=== PATIENT | female | born 1940 | race Caucasian/White ===

== ENCOUNTER 2017-02-19 08:48 | Outpatient (CLI) | payer MEDICARE, OTHER | END 2017-02-19 08:49 | disposition home or self-care (01) | DX: G62.9 Polyneuropathy, unspecified (principal); R73.01 Impaired fasting glucose; E04.1 Nontoxic single thyroid nodule ==

== ENCOUNTER 2017-02-27 14:55 | Outpatient (CLI) | payer MEDICARE, OTHER | END 2017-02-27 14:56 | disposition home or self-care (01) | DX: R10.9 Unspecified abdominal pain (principal) ==

== ENCOUNTER 2017-02-27 15:20 | Outpatient (CLI) | payer MEDICARE, OTHER ==
[2017-02-27] MEDS ORDERED: IOPAMIDOL-300 100 ML VIAL IVP ONE (17:22)
[2017-02-27] MEDS ORDERED: IOVERSOL-300 50 ML VIAL PO ONE (17:22)
== END 2017-02-27 15:21 | disposition home or self-care (01) ==
DX: R10.9 Unspecified abdominal pain (principal)
CPT/HCPCS: 74177; Q9967

== ENCOUNTER 2017-05-16 01:28 | Outpatient (CLI) | payer MEDICARE, OTHER ==
[2017-05-16 13:51] LABS: BASOPHILS % (AUTO) 0.2 %; EOSINOPHILS # (AUTO) 0.6 10^3/uL (0.0-0.7); EOSINOPHILS % (AUTO) 9.1 %; HCT - HEMATOCRIT 41.5 % (37.0-47.0); HGB - HEMOGLOBIN 13.9 g/dL (12.0-16.0); LYMPHOCYTES # (AUTO) 2.1 10^3/uL (1.5-3.5); LYMPHOCYTES % (AUTO) 29.9 %; MEAN CORPUSCULAR HGB CONC 33.4 g/dL (32.0-36.0); MEAN CORPUSCULAR VOLUME 86.7 fL (81.0-99.0); MEAN PLATELET VOLUME 9.6 fL (7.9-10.8); MONOCYTES # (AUTO) 0.7 10^3/uL (0.0-1.0); MONOCYTES % (AUTO) 10.1 %; NEUTROPHILS # (AUTO) 3.6 10^3/uL (1.5-6.6); NEUTROPHILS % (AUTO) 50.7 %; RED BLOOD COUNT 4.79 10^6/uL (4.20-5.40); RED CELL DISTRIBUTION WIDTH 14.1 % (12.0-15.0)
[2017-05-16 14:25] LABS: ALBUMIN/GLOBULIN RATIO 1.4 (1.0-2.2); BILIRUBIN,TOTAL 1.1 mg/dL (0.2-1.0); BUN - BLOOD UREA NITROGEN 12 mg/dL (6-20); CALCIUM 8.9 mg/dL (8.5-10.3); CARBON DIOXIDE - CO2 25 mmol/L (21-32); CHLORIDE 107 mmol/L (101-111); CHOL/HDL RATIO 3.5 (<4.4); CHOLESTEROL 179 mg/dL; CREATININE 0.6 mg/dL (0.4-1.0); GFR - MDRD 97 (>89); GLUCOSE 102 mg/dL (70-100); HDL CHOLESTEROL 51 mg/dL; LDL/HDL RATIO 1.6 (<4.4); POTASSIUM 3.8 mmol/L (3.5-5.0); SODIUM 140 mmol/L (135-145); TOTAL PROTEIN 6.4 g/dL (6.7-8.2); TRIGLYCERIDES 225 mg/dL; VLDL CHOLESTEROL 45 mg/dL
== END 2017-05-16 01:29 | disposition home or self-care (01) ==
LOC: LAB.WCP 01:28
PROVIDERS: ATTEND Family Medicine
DX: E78.5 Hyperlipidemia, unspecified (principal)
CPT/HCPCS: 36415; 80053; 80061; 84443; 85025

== ENCOUNTER 2017-08-08 09:55 | Outpatient (CLI) | payer MEDICARE, OTHER | END 2017-08-08 09:56 | disposition home or self-care (01) | LOC: LAB.WCP 09:55 | PROVIDERS: ATTEND Family Medicine | DX: N39.0 Urinary tract infection, site not specified (principal) | CPT/HCPCS: 87086 ==

== ENCOUNTER 2017-08-08 13:03 | Outpatient (CLI) | payer MEDICARE, OTHER ==
--- NOTE | 2017-08-12 13:41 | DEXA Report ---
DEXA: 08/08/2017 CLINICAL INDICATION: Postmenopausal. TECHNIQUE: Dual energy x-ray absorptiometry (DXA) was performed on a [employer] system. Regions measured are the AP spine, femoral neck, and, if needed, forearm. COMPARISON: None. In accordance with the International Society for Clinical Densitometry (ISCD) guidelines, data from previous exams may be reanalyzed using current recommendations and techniques. This is done to allow a more accurate basis for comparison with the current study. FINDINGS The data for the lumbar spine is as follows: REGION BMD (g/cm/cm) T-SCORE Z-SCORE L1 1.119 -0.1 1.8 L2 1.086 -0.9 1.0 L3 1.298 0.8 2.7 L4 1.440 2.0 3.9 TOTAL 1.253 0.6 2.5 NOTE: All evaluable vertebrae are used for classification. The data for the hip is as follows: REGION BMD (g/cm/cm) T-SCORE Z-SCORE Neck 0.810 -1.6 0.4 TOTAL 0.792 -1.7 0.2 NOTE: The femoral neck or total proximal femur, whichever is lowest, is used for classification. IMPRESSION: THE WHO CLASSIFICATION BASED ON THE INTERNATIONAL REFERENCE STANDARD IS OSTEOPENIA. THE FRACTURE RISK IS INCREASED. RECOMMENDATION: Patients with diagnosis of osteoporosis or osteopenia should have regular bone mineral density assessment. For those eligible for Medicare, routine testing is allowed once every 2 years. Testing frequency can be increased for patients who have rapidly progressing disease or for those who are receiving medical therapy to restore bone mass. COMMENT: World Health Organization (WHO) definitions for osteoporosis and osteopenia: NORMAL BMD: T-score at -1.0 or higher, fracture risk is low. OSTEOPENIA BMD: T-score between -1.0 and -2.5, fracture risk is increased. OSTEOPOROSIS BMD: T-score at -2.5 or lower, fracture risk high. National Osteoporosis Foundation recommends: 1. Obtain adequate dietary calcium (at least 1200 mg per day) and vitamin D (400 -800 international units per day). 2. Participate, as appropriate, in regular weightbearing and muscle- strengthening exercise. 3. Avoid tobacco use and reduce alcohol and caffeine intake. 4. For more detailed information see the website at www.NOF.org. MTDD
== END 2017-08-08 13:04 | disposition home or self-care (01) ==
LOC: DI 13:03
PROVIDERS: ATTEND Family Medicine
DX: M85.88 Other specified disorders of bone density and structure, other site (principal); N39.0 Urinary tract infection, site not specified
CPT/HCPCS: 77080; 87086

== ENCOUNTER 2017-11-19 12:06 | Outpatient (CLI) | payer MEDICARE, OTHER | END 2017-11-19 12:07 | disposition home or self-care (01) | LOC: DI.N 12:06 | PROVIDERS: ATTEND Family Medicine | DX: Z53.9 Procedure and treatment not carried out, unspecified reason (principal) ==

== ENCOUNTER 2017-11-26 08:00 | Outpatient (CLI) | payer MEDICARE, OTHER | END 2017-11-26 08:01 | disposition home or self-care (01) | LOC: LAB.WCP 08:00 | PROVIDERS: ATTEND Physician Assistant Medical | DX: N64.52 Nipple discharge (principal) | CPT/HCPCS: 87070; 87205 ==

== ENCOUNTER 2017-12-03 14:39 | Outpatient (CLI) | payer MEDICARE, OTHER ==
--- NOTE | 2017-12-03 18:37 | MRI Report ---
EXAM: LEFT SHOULDER MRI WITHOUT CONTRAST EXAM DATE: 12/03/2017 03:30 PM. CLINICAL HISTORY: Shoulder impingement syndrome, left. COMPARISON: None. TECHNIQUE: Multiplanar, multisequence T1-weighted and fluid-sensitive sequences of the shoulder witho ut contrast. Other: None. FINDINGS: Acromioclavicular Region: The acromion is Type II unipartite. AC joint is moderately to severely oste oarthritic and there is a small AC joint effusion. The coracoacromial and coracoclavicular ligaments are intact. Trace amount of bursal fluid is present. Glenohumeral Region: No subluxation. No effusion or loose bodies. The articular cartilage is unremark able. The glenohumeral ligaments and joint capsule are unremarkable. Bone Marrow: Small amount of cystic change seen in the superior anterior aspect of the humeral head, benign. Labrum: The labrum is unremarkable on this nonarthrographic study. Musculature/Rotator Cuff: Supraspinatus portion of the rotator cuff is normal thickness; however, evelyne ws some increased T2 signal. Lesser amounts of similar change seen in the subscapularis. No partial o r full-thickness cuff tears are seen. No proximal muscular edema or fatty atrophy. Biceps Tendon: The long head of the biceps tendon and biceps patric are intact. Other: The subcutaneous tissues are unremarkable. IMPRESSION: 1. Type II unipartite undersurface osseous acromion shape. AC joint is moderate to severely osteoarth ritic and there is a small AC joint effusion. Trace amount of bursal fluid is present, probably from mild bursitis. 2. Tendinopathy in the supraspinatus and subscapularis portions of the rotator cuff. 3. Labrum, capsular structures of long head of the biceps appear unremarkable. [facility] MUSCULOSKELETAL RADIOLOGY SECTION Referring Provider Line: [phone] SITE ID: [id number]
== END 2017-12-03 14:40 | disposition home or self-care (01) ==
LOC: DI 14:39
PROVIDERS: ATTEND Physician Assistant Medical
DX: M19.012 Primary osteoarthritis, left shoulder (principal); M25.412 Effusion, left shoulder; M75.92 Shoulder lesion, unspecified, left shoulder

== ENCOUNTER 2017-12-04 13:02 | Outpatient (CLI) | payer MEDICARE, OTHER ==
--- NOTE | 2017-12-05 09:54 | Mammography Report ---
DATE OF SERVICE: 12/04/2017 DIGITAL DIAGNOSTIC BILATERAL MAMMOGRAM: 12/04/2017 CLINICAL INDICATION: Bilateral nipple discharge. TECHNIQUE: Bilateral CC, MLO, true lateral, spot magnification views. COMPARISON: 10/2016, 10/2015, 09/2014, 09/2013, 07/2012, 07/2011, 06/2010. FINDINGS: The breasts again demonstrate scattered fibroglandular densities bilaterally. Coarse and punctate, typically benign calcifications are present. No suspicious masses, clustered microcalcifications, or regions of architectural distortion are identified. Specifically, no retroareolar lesion is identified on either side. IMPRESSION: BENIGN FINDINGS. RECOMMENDATION: ROUTINE ANNUAL SCREENING UNLESS OTHERWISE CLINICALLY INDICATED. BIRADS CATEGORY 2-BENIGN FINDINGS. STANDARD QUALIFYING STATEMENTS: 1. This examination was reviewed with the aid of Computer-Aided Detection (CAD). 2. A negative or benign imaging report should not delay biopsy if clinically suspicious findings are present. Consider surgical consultation if warranted. More than 5% of cancers are not identified by imaging. 3. Dense breasts may obscure an underlying neoplasm. TD: 12/05/2017 10:52
== END 2017-12-04 13:03 | disposition home or self-care (01) ==
LOC: DI 13:02
PROVIDERS: ATTEND Physician Assistant Medical
DX: N64.52 Nipple discharge (principal)
CPT/HCPCS: 77066

== ENCOUNTER 2018-02-26 08:00 | Outpatient (CLI) | payer MEDICARE, OTHER ==
[2018-02-26 18:54] LABS: BASOPHILS % (AUTO) 0.5 %; EOSINOPHILS # (AUTO) 0.1 10^3/uL (0.0-0.7); EOSINOPHILS % (AUTO) 1.3 %; HGB - HEMOGLOBIN 14.5 g/dL (12.0-16.0); LYMPHOCYTES # (AUTO) 2.1 10^3/uL (1.5-3.5); LYMPHOCYTES % (AUTO) 26.3 %; MEAN CORPUSCULAR HEMOGLOBIN 28.8 pg (27.0-31.0); MEAN CORPUSCULAR HGB CONC 32.9 g/dL (32.0-36.0); MEAN CORPUSCULAR VOLUME 87.6 fL (81.0-99.0); MEAN PLATELET VOLUME 10.1 fL (7.9-10.8); MONOCYTES # (AUTO) 0.8 10^3/uL (0.0-1.0); MONOCYTES % (AUTO) 10.6 %; NEUTROPHILS # (AUTO) 4.8 10^3/uL (1.5-6.6); NEUTROPHILS % (AUTO) 61.3 %; PLT - PLATELET COUNT 248 10^3/uL (130-450); RED BLOOD COUNT 5.03 10^6/uL (4.20-5.40); RED CELL DISTRIBUTION WIDTH 13.7 % (12.0-15.0); WHITE BLOOD COUNT 7.8 x10^3/uL (4.8-10.8)
[2018-02-26 19:14] LABS: ALBUMIN 4.2 g/dL (3.2-5.5); ALBUMIN/GLOBULIN RATIO 1.5 (1.0-2.2); ALKALINE PHOSPHATASE 101 IU/L (42-121); ALT ALANINE AMINOTRANSFERASE 20 IU/L (10-60); AST ASPARTATE AMINOTRANSFERASE 23 IU/L (10-42); BILIRUBIN,TOTAL 1.1 mg/dL (0.2-1.0); BUN - BLOOD UREA NITROGEN 21 mg/dL (6-20); CALCIUM 9.3 mg/dL (8.5-10.3); CARBON DIOXIDE - CO2 27 mmol/L (21-32); CHLORIDE 105 mmol/L (101-111); CHOL/HDL RATIO 3.8 (<4.4); CHOLESTEROL 200 mg/dL; CREATININE 0.7 mg/dL (0.4-1.0); GFR - MDRD 81 (>89); GLUCOSE 96 mg/dL (70-100); HDL CHOLESTEROL 52 mg/dL; LDL CHOLESTEROL,CALCULATED 93 mg/dL; LDL/HDL RATIO 1.8 (<4.4); SODIUM 139 mmol/L (135-145); VLDL CHOLESTEROL 55 mg/dL
== END 2018-02-26 08:01 | disposition home or self-care (01) ==
LOC: LAB.WCP 08:00
PROVIDERS: ATTEND Family Medicine
DX: I20.9 Angina pectoris, unspecified (principal); R07.9 Chest pain, unspecified
CPT/HCPCS: 36415; 80053; 80061; 83721; 84484; 85025; 85379

== ENCOUNTER 2018-03-05 09:41 | Outpatient (CLI) | payer MEDICARE, OTHER ==
[2018-03-05] MEDS ORDERED: REGADENOSON 0.4 MG/5 ML SYRINGE IVP ONE ×2 (10:09→14:17)
--- NOTE | 2018-03-05 14:26 | CARDIAC PROCEDURE NOTE ---
DATE OF SERVICE: 03/05/2018 Physician: SAVANNA Mclain PRIMARY CARE PHYSICIAN: Dr. Cat Haddad. PROCEDURE: Pharmacologic cardiac stress test. PROCEDURES SYMPTOMS: Chest pain with exertion. CARDIAC RISK FACTORS: Include age, hypertension, and hyperlipidemia. She has had no prior cardiac procedures. CLINICAL HISTORY: A 77-year-old female without known coronary artery disease. She has no current symptoms. Her last dose of atenolol was taken last evening. INITIAL RESTING VITAL SIGNS: Blood pressure 162/80, heart rate 86, height 61.5 inches, weight 139 pounds, BMI 25.86. PROCEDURE AND FINDINGS: Patient identity and date verified. Consent signed. Pharmaceutical check. Pharmacologic stress testing was performed with Lexiscan at a dose of 0.4 mg over 10 seconds. The heart rate increased to 112 beats per minute from the infusion. Blood pressure response was normal during the stress procedure. The patient developed infusion-related symptoms, which included shortness of air, chest pain, and headache that resolved spontaneously. The resting ECG demonstrated normal sinus rhythm with right bundle branch block, with no or nonspecific ST or T-wave changes. Maximum ST segment depression with stress was less than 0.5 mm and upsloping. There was rare PVC ectopy. FINAL IMPRESSIONS 1. Good quality test. 2. Negative electrocardiogram for ischemia in the setting of vasodilator stress. 3. Nondiagnostic stress test for angina. 4. Rare PVCs. DISCUSSION AND RECOMMENDATIONS: Await myocardial perfusion report. TD: 03/05/2018 14:24 [email or web address]
--- NOTE | 2018-03-05 14:34 | Nuclear Medicine Report ---
EXAM: SINGLE-ISOTOPE PHARMACOLOGICAL STRESS TEST WITH REGADENOSON. SINGLE-ISOTOPE AND ONE-DAY REST/STRESS M YOCARDIAL PERFUSION SCANS WITH TOMOGRAPHIC IMAGING, QUANTITATIVE ANALYSIS, WALL MOTION ANALYSIS AND C ALCULATION OF EJECTION FRACTION. EXAM DATE: 03/05/2018 02:20 PM. CLINICAL HISTORY: CHEST PAIN, ANGINA. COMPARISON: None available. TECHNIQUE: After the intravenous administration of 9.4 mCi of Tc-99m sestamibi, a rest myocardial perfusion scan was done with tomography. Motion correction was applied when appropriate. After an appropriate delay, pharmacological stress was performed with the infusion of 0.4 mg regadeno son per protocol. According to protocol, 41.8 mCi of Tc-99m sestamibi was injected for stress myocard ial perfusion scan. Motion correction was applied when appropriate. Gated tomographic images were obtained for wall motion analysis and computation of left ventricular e jection fraction. FINDINGS: Images show a small, moderate severity predominantly reversible defect involving the anteri or apex and distal anterolateral wall. No other convincing fixed or reversible perfusion defects. Wall motion analysis demonstrates no focal wall motion abnormality. The left ventricular end-diastolic volume is 67 cc. The left ventricular end-systolic volume is 15 cc . The left ventricular ejection fraction is calculated to be 77%. IMPRESSION: 1. Small, moderate severity predominantly reversible perfusion defect involving the anterior apex and distal anterolateral wall. No other convincing fixed or reversible perfusion defects. 2. Left ventricular ejection fraction of 77%. 3. Normal segmental and global wall motion. 4. Normal left ventricular cavity size, no change with stress. [facility] Referring Provider Line: [phone] SITE ID: [id number]
[2018-03-05 15:31] VITALS: BP 164/84
== END 2018-03-05 09:42 | disposition home or self-care (01) ==
LOC: DI 09:41
PROVIDERS: ATTEND Family Medicine
DX: R07.9 Chest pain, unspecified (principal); I20.9 Angina pectoris, unspecified; I10 Essential (primary) hypertension; E78.5 Hyperlipidemia, unspecified
CPT/HCPCS: 78452; 93017; A9500; J2785; 93016; 93018

== ENCOUNTER 2018-04-02 06:50 | Outpatient (CLI) | payer MEDICARE, OTHER | END 2018-04-02 06:51 | disposition critical access hospital (66) | LOC: EMS 06:50 | PROVIDERS: ATTEND Surgery | DX: R51 Headache (principal); R03.0 Elevated blood-pressure reading, without diagnosis of hypertension; R29.91 Unspecified symptoms and signs involving the musculoskeletal system | CPT/HCPCS: A0425; A0429 ==

== ENCOUNTER 2018-04-02 07:16 | Emergency (ER) | payer MEDICARE, OTHER ==
[2018-04-02] MEDS ORDERED: DEXAMETHASONE 10 MG/ML VIAL IVP STA (07:19)
[2018-04-02] MEDS ORDERED: LABETALOL 20 MG/4 ML SYRINGE IVP ONE (07:24)
--- NOTE | 2018-04-02 07:31 | ED Physician Documentation ---
History of Present Illness - Stated complaint Stated Complaint: R FACIAL WEAKNESS - Chief complaint Chief Complaint: Heent - History obtained from History obtained from: Patient, Family - History of Present Illness Timing: Today - Additonal information Additional information: 77-year-old female with a history of coronary artery disease and hypertension has developed a right facial droop today. She had this is accompanied by some pain behind her right ear and into her right neck and into the right occiput. She is found to be extremely hypertensive as well. She has had a recent nuclear medicine stress test and is expecting to get a stent placed soon. Review of Systems Constitutional: denies: Fever Eyes: denies: Decreased vision Ears: denies: Ear pain Nose: denies: Rhinorrhea / runny nose, Congestion Throat: denies: Sore throat Cardiac: denies: Chest pain / pressure Respiratory: denies: Dyspnea, Cough GI: reports: Diarrhea. denies: Abdominal Pain, Nausea, Vomiting : denies: Dysuria, Frequency Skin: denies: Rash Musculoskeletal: reports: Neck pain. denies: Back pain, Extremity pain Neurologic: reports: Focal weakness, Numbness, Headache. 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 HEENT: Tonsil/Adenoidectomy - Present Medications Home Medications: Ambulatory Orders Medication Instructions Recorded Confirmed Atorvastatin Calcium [Lipitor] 10 mg PO HS 07/29/13 06/20/15 Clobetasol Propionate/Emoll 1 applic TOP DAILY PRN 07/29/13 06/20/15 [Clobetasol Emollient 0.05% Crm] Levothyroxine [Synthroid] 50 mcg PO QDAC 07/29/13 06/20/15 Multivitamin [Multivitamins] 1 each PO DAILY 07/29/13 06/20/15 Metoprolol Succinate 100 DAILY 04/02/18 predniSONE [Deltasone] 10 mg PO DAILY #26 tablet 04/02/18 - Allergies Allergies/Adverse Reactions: Allergies Allergy/AdvReac Type Severity Reaction Status Date / Time metoclopramide HCl * Allergy VIOLENTLY Verified 09/22/13 08:22 [From Reglan] ILL acetaminophen [From Vicodin] AdvReac Nausea Verified 06/20/15 09:23 hydrocodone bitartrate * AdvReac Nausea Verified 06/20/15 09:23 [From Vicodin] morphine AdvReac NAUSEA/EMES Verified 09/22/13 08:22 IS - Social History Does the pt smoke?: No Smoking Status: Never smoker Does the pt have substance abuse?: No - Immunizations Immunizations are current?: Yes PD ED PE NORMAL - Vitals Vital signs reviewed: Yes (marked hypertension ) - General General: Alert and oriented X 3, No acute distress, Well developed/nourished, Other (obvious right facial droop) - HEENT HEENT: Atraumatic, PERRL, EOMI, Ears normal, Moist mucous membranes, Pharynx benign, Dentition benign - Neck Neck: Supple, no meningeal sign, No bony TTP - Cardiac Cardiac: RRR, No murmur - Respiratory Respiratory: No respiratory distress, Clear bilaterally - Abdomen Abdomen: Soft, Non tender - Back Back: No CVA TTP, No spinal TTP - Derm Derm: Normal color, Warm and dry, No rash - Extremities Extremities: No deformity, No edema - Neuro Neuro: Alert and oriented X 3, Normal speech, Other (There is a right facial droop most prominent at the mouth and less over the eye and forehead but present in both) Eye Opening: Spontaneous Motor: Obeys Commands Verbal: Oriented GCS Score: 15 - Psych Psych: Normal mood, Normal affect Results - Vitals Vitals: Vital Signs - 24 hr 04/02/18 04/02/18 04/02/18 07:16 08:09 09:46 Temperature 36.8 C 36.3 C L Heart Rate 92 79 90 Respiratory 16 17 16 Rate Blood Pressure 231/119 H 189/94 H 199/95 H O2 Saturation 97 95 96 04/02/18 04/02/18 04/02/18 11:06 13:14 14:53 Temperature 36.5 C 36.9 C Heart Rate 90 97 98 Respiratory 18 15 18 Rate Blood Pressure 138/78 H 162/86 H 157/90 H O2 Saturation 95 96 95 Oxygen O2 Source Room air - EKG (time done) 0741 Rate: Rate (enter#) (74) Rhythm: NSR Intervals: RBBB Compare to prior EKG: Old EKG unavailable Computer interpretation: Agree with computer - Labs Labs: Laboratory Tests 04/02/18 04/02/18 04/02/18 07:32 07:32 07:32 WBC 6.9 RBC 5.13 Hgb 15.2 Hct 44.4 MCV 86.6 MCH 29.7 MCHC 34.3 RDW 13.6 Plt Count 227 MPV 9.2 Neut # 4.3 Lymph # 1.7 Mcduffie # 0.6 Eos # 0.2 Baso # 0.1 Absolute Nucleated RBC 0.01 Nucleated RBC % 0.1 Sodium 137 Potassium 3.8 Chloride 104 Carbon Dioxide 24 Anion Gap 9.0 BUN 20 Creatinine 0.5 Estimated GFR (MDRD) 120 Glucose 113 H Calcium 9.0 Total Bilirubin 1.9 H AST 29 ALT 23 Alkaline Phosphatase 94 Troponin I < 0.04 Total Protein 7.0 Albumin 4.1 Globulin 2.9 Albumin/Globulin Ratio 1.4 Lipase 39 - Rads (name of study) CTA head and neck Radiology: Prelim report reviewed (Impression: CT head 1. No convincing evidence of acute infarct. If there is clinical concern for acute stroke her symptoms persist an MR of the brain should be considered to evaluate for small or subtle pathology. No acute intracranial hemorrhage, mass, hydrocephalus, midline shift, or abnormal postcontrast enhancement. Mild to moderate white matter changes progress from 07/16/2007 appear chronic suggest potential sequelae of chronic small vessel ischemic disease. CTA neck normal CTA of the neck: No dissection, pseudoaneurysm, high-grade stenosis. CTA head: no large vessel occlusion. No intracranial aneurysm, stenosis, or vascular malformation.), EMP read indepedently, See rad report Procedures - IVC sono (time) 1030 Bedside IVC sono: IVC measures (cm) (0.73), IVC collapsed c insp (cm) (complete) , Significant dehydration (est 2-3 liter deficit) 1205 Bedside IVC sono: IVC measures (cm) (1.14), IVC collapsed c insp (cm) (complete) , Dehydration (est 1 liter deficit) 1500 Bedside IVC sono: IVC measures (cm) (1.24), Dehydration PD MEDICAL DECISION MAKING - ED course Complexity details: considered differential, d/w patient, d/w family ED course: 77-year-old female with an acute right facial droop and marked hypertension presents to the emergency department this morning and my initial impression is to control her blood pressure. She is administered labetalol 10 mg intravenously she is also given dexamethasone 10 mg intravenously. She requires a second dose of labetalol and she is found to be significantly dehydrated and IV saline is begun as well. She is administered 2 liters total and her blood pressure stabilizes. She complains of pain in the right occiput and behind the right ear and in the right neck and I was concerned with the dramatic presentation about a possible dissection and CT angio of the neck and head were performed and were negative studies. Departure - Departure Disposition: 01 Home, Self Care Clinical Impression: Reyes's palsy, Dehydration Condition: Stable Instructions: ED [place] Palsy, ED Dehydration Follow-Up: Cat Haddad DO [Primary Care Provider] - Prescriptions: predniSONE [Deltasone] 10 mg PO DAILY #26 tablet Discharge Date/Time: 04/02/18 14:53
[2018-04-02] MEDS ORDERED: LABETALOL 5 MG/1 ML 20 ML MDV IVP STA ×2 (07:37→08:31)
[2018-04-02 07:54] LABS: ALBUMIN 4.1 g/dL (3.2-5.5); ALBUMIN/GLOBULIN RATIO 1.4 (1.0-2.2); BILIRUBIN,TOTAL 1.9 mg/dL (0.2-1.0); CREATININE 0.5 mg/dL (0.4-1.0)
[2018-04-02 07:56] LABS: BASOPHILS # (AUTO) 0.1 10^3/uL (0.0-0.1); BASOPHILS % (AUTO) 0.7 %; EOSINOPHILS # (AUTO) 0.2 10^3/uL (0.0-0.7); EOSINOPHILS % (AUTO) 2.6 %; HGB - HEMOGLOBIN 15.2 g/dL (12.0-16.0); LYMPHOCYTES # (AUTO) 1.7 10^3/uL (1.5-3.5); LYMPHOCYTES % (AUTO) 24.4 %; MEAN CORPUSCULAR HEMOGLOBIN 29.7 pg (27.0-31.0); MEAN CORPUSCULAR HGB CONC 34.3 g/dL (32.0-36.0); MEAN CORPUSCULAR VOLUME 86.6 fL (81.0-99.0); MEAN PLATELET VOLUME 9.2 fL (7.9-10.8); MONOCYTES # (AUTO) 0.6 10^3/uL (0.0-1.0); MONOCYTES % (AUTO) 9.2 %; NEUTROPHILS # (AUTO) 4.3 10^3/uL (1.5-6.6); NEUTROPHILS % (AUTO) 63.1 %; PLT - PLATELET COUNT 227 10^3/uL (130-450); RED BLOOD COUNT 5.13 10^6/uL (4.20-5.40); RED CELL DISTRIBUTION WIDTH 13.6 % (12.0-15.0); WHITE BLOOD COUNT 6.9 x10^3/uL (4.8-10.8)
[2018-04-02] MEDS ORDERED: IOPAMIDOL-300 100 ML VIAL ONE (08:51)
[2018-04-02] MEDS ORDERED: IOPAMIDOL-300 100 ML VIAL IVP ONE (09:26)
--- NOTE | 2018-04-02 10:01 | CT Report ---
EXAM: CT ANGIOGRAM HEAD AND NECK. CT SCAN HEAD WITHOUT AND WITH CONTRAST. EXAM DATE:04/02/2018 09:25 AM. CLINICAL HISTORY:Right sided headache neck pain and facial droop. COMPARISON:CT head 07/16/2007. TECHNIQUE: Routine axial helical CTA imaging was performed from the aortic arch through the [place]. Routine axial CT imaging of the head was performed prior to and following contrast administr ation. Reconstructions: Routine multiplanar 3D MIP reconstructions. IV contrast: 80ML ISOVUE 300. NASCET Criteria are used for stenosis measurements. In accordance with CT protocol optimization, one or more of the following dose reduction techniques w ere utilized for this exam: automated exposure control, adjustment of mA and/or KV based on patient s ize, or use of iterative reconstructive technique. FINDINGS: NON-CONTRAST HEAD: Parenchyma: No acute parenchymal hemorrhage, mass, or midline shift. There is [id number] bilate ral areas of white matter hyperattenuation seen that while progressed from 07/16/2007 appear chronic. T here is no convincing CT evidence of moderate to large acute infarct. Cortical volume appears age-appropriate.. Extra-axial Spaces: Normal. No extra-axial fluid collections or hemorrhage. Ventricles: The ventricles appear age appropriate. No evidence of intraventricular hemorrhage. Orbits and Sinuses: Changes of bilateral lens replacement. Paranasal sinuses and mastoid air cells ar e clear. Extracranial Soft Tissues and Bones: Extracranial soft tissues are unremarkable. No fractures. Other: Vascular calcifications of the cavernous ICA segments. CT ANGIOGRAM HEAD AND NECK: Atherosclerotic calcification of the aortic arch with no significant stenosis seen. Normal three-vess el takeoff. RIGHT: Common Carotid Artery: There is a retrotracheal course of the right common carotid artery. No dissect ion or stenosis seen. Carotid Bulb: There is no significant atherosclerotic plaque at the bifurcation and siphon. Stenosis at the bifurcation by NASCET criteria: No central stenosis. Internal Carotid Artery: No evidence of dissection. Vascular calcification of the cavernous ICA segme nt with high-grade stenosis seen. There is an inferomedially projecting outpouching arising from the supraclinoid right ICA measuring up to 1 mm (series 6, image 98) with posterior communicating artery arising from the tip. Finding may represent an infundibulum. No evidence of aneurysm along the intrac ranial ICA. External Carotid Artery: Unremarkable. Vertebral Artery: Patent without significant stenosis. No evidence of dissection. Anterior Cerebral Artery: Patent without significant stenosis, aneurysm, or vascular malformation. Middle Cerebral Artery: Patent without significant stenosis, aneurysm, or vascular malformation. Posterior Cerebral Artery: Patent without significant stenosis, aneurysm, or vascular malformation. Posterior Communicating Artery: Patent. No aneurysm. LEFT: Common Carotid Artery: Patent without significant stenosis. Carotid Bulb: There is minimal atherosclerotic plaque at the bifurcation and siphon. Stenosis at the bifurcation by NASCET criteria: No significant stenosis. Internal Carotid Artery: No evidence of dissection. Vascular calcification of the cavernous ICA segme nts with no high-grade stenosis seen. No evidence of aneurysm along the intracranial ICA. External Carotid Artery: Unremarkable. Vertebral Artery: Patent without significant stenosis. No evidence of dissection. Anterior Cerebral Artery: Patent without significant stenosis, aneurysm, or vascular malformation. Middle Cerebral Artery: Patent without significant stenosis, aneurysm, or vascular malformation. Posterior Cerebral Artery: Patent without significant stenosis, aneurysm, or vascular malformation. Posterior Communicating Artery: Patent. No aneurysm. CENTRAL: Anterior Communicating Artery: Patent. No aneurysm. Basilar Artery: Patent without significant stenosis. No aneurysm. DURAL VENOUS SINUSES AND MAJOR CENTRAL VEINS: Patent. OTHER: The visualized pharynx and larynx appear normal. Major salivary glands appear normal. Heterogenous attenuation of the thyroid lobe which may represent thyroid goiter. No cervical lymphadenopathy or necrotic lymph nodes seen. Soft tissues of the neck appear normal. Visualized lung apices are clear. No acute fracture or traumatic subluxation of the cervical spine. Multilevel degenerative changes. No suspicious osseous lesion. POST-CONTRAST HEAD: No abnormal enhancement. IMPRESSION: CT HEAD 1. No convincing evidence of acute infarct. If there is clinical concern for acute stroke or symptoms persist an MR of the brain should be considered to evaluate for small or subtle pathology. ASPECTS 10R/10L 2. No acute intracranial hemorrhage, mass, hydrocephalus, midline shift, or abnormal postcontrast enh ancement. 3. [id number] white matter changes that while progressed from 07/16/2007 appear chronic suggest p otential sequela of chronic small vessel ischemic disease. CTA NECK 1. Normal CTA of the neck. No dissection, pseudoaneurysm, high-grade stenosis. CTA HEAD 1. No large vessel occlusion. 2. No intracranial aneurysm, stenosis, or vascular malformation. [facility] Referring Provider Line: [phone] SITE ID: [id number]
[2018-04-02] MEDS ORDERED: SODIUM CHLORIDE 0.9% 1,000 ML IV ONE ×2 (10:34→12:36)
[2018-04-02 14:56] VITALS: BP 157/90
== END 2018-04-02 14:53 | disposition home or self-care (01) ==
LOC: EDUNIT# → ED 07:16
DX: E86.0 Dehydration (principal); G51.0 Bell's palsy; I10 Essential (primary) hypertension; E78.00 Pure hypercholesterolemia, unspecified; E03.9 Hypothyroidism, unspecified; K21.9 Gastro-esophageal reflux disease without esophagitis; M19.90 Unspecified osteoarthritis, unspecified site
CPT/HCPCS: 36415; 70496; 70498; 80053; 83690; 84484; 85025; 93005; 96361; 96374; 96375; 96376; 99284; Q9967

== ENCOUNTER 2018-05-05 11:50 | Outpatient (CLI) | payer MEDICARE, OTHER ==
--- NOTE | 2018-05-05 23:38 | Ultrasound Report ---
Procedure Date: 05/05/2018 Accession Number: [id number] / [id number] Procedure: US - Duplex Ext Veins Left CPT Code: FULL RESULT: EXAM: LEFT LOWER EXTREMITY VENOUS ULTRASOUND EXAM DATE: 05/05/2018 10:50 PM. CLINICAL HISTORY: LEG EDEMA,LEFT,HX OF DVT. COMPARISON: [facility] 04/15/2014. TECHNIQUE: Real-time sonographic vascular imaging was performed by the c 40a crew chief through the lower extremity utilizing both color-flow and Doppler spectral analysis. Multiple resources representative static images were saved for review. FINDINGS: Common Femoral Vein (CFV): Normal. CFV-GSV Junction: Normal. Profunda Femoral Vein (PFV): Normal. Femoral Vein (FV) Prox: Normal. Femoral Vein (FV) Mid: Normal. Femoral Vein (FV) Dist: Normal. Popliteal Vein: Normal. Posterior Tibial Veins: Normal. Peroneal Veins: Normal. Other: Fluid collection lateral to the knee measuring 3.4 x 0.8 x 3.7 cm. IMPRESSION: 1. No evidence for deep venous thrombosis. 2. Fluid lateral to the knee measuring 3.4 x 0.8 x 3.7 cm, possibly knee joint effusion. [facility]
== END 2018-05-05 11:51 | disposition home or self-care (01) ==
LOC: DI 11:50
PROVIDERS: ATTEND Family Medicine
DX: R60.0 Localized edema (principal); Z86.718 Personal history of other venous thrombosis and embolism

== ENCOUNTER 2018-05-08 07:24 | Outpatient (CLI) | payer MEDICARE, OTHER ==
[2018-05-08 12:36] LABS: BASOPHILS # (AUTO) 0.1 10^3/uL (0.0-0.1); BASOPHILS % (AUTO) 0.8 %; EOSINOPHILS # (AUTO) 0.2 10^3/uL (0.0-0.7); EOSINOPHILS % (AUTO) 3.4 %; HGB - HEMOGLOBIN 13.2 g/dL (12.0-16.0); LYMPHOCYTES # (AUTO) 1.4 10^3/uL (1.5-3.5); LYMPHOCYTES % (AUTO) 20.2 %; MEAN CORPUSCULAR HEMOGLOBIN 29.7 pg (27.0-31.0); MEAN CORPUSCULAR HGB CONC 32.8 g/dL (32.0-36.0); MEAN CORPUSCULAR VOLUME 90.6 fL (81.0-99.0); MEAN PLATELET VOLUME 9.5 fL (7.9-10.8); MONOCYTES # (AUTO) 0.7 10^3/uL (0.0-1.0); NEUTROPHILS # (AUTO) 4.6 10^3/uL (1.5-6.6); NEUTROPHILS % (AUTO) 65.6 %; PLT - PLATELET COUNT 273 10^3/uL (130-450); RED BLOOD COUNT 4.42 10^6/uL (4.20-5.40); RED CELL DISTRIBUTION WIDTH 14.4 % (12.0-15.0)
[2018-05-08 12:47] LABS: CHOL/HDL RATIO 2.7 (<4.4); CHOLESTEROL 161 mg/dL; HDL CHOLESTEROL 59 mg/dL; LDL CHOLESTEROL,CALCULATED 58 mg/dL; VLDL CHOLESTEROL 44 mg/dL
[2018-05-08 12:57] LABS: THYROID STIMULATING HORMONE 6.24 uIU/mL (0.34-5.60)
[2018-05-08 12:59] LABS: FREE T4 (FREE THYROXINE) 1.11 ng/dL (0.58-1.64)
[2018-05-08 13:01] LABS: TOTAL T3 1.06 ng/mL (0.87-1.78)
== END 2018-05-08 07:25 | disposition home or self-care (01) ==
LOC: LAB.WCP 07:24
PROVIDERS: ATTEND Internal Medicine Cardiovascular Disease
DX: I25.2 Old myocardial infarction (principal); D50.0 Iron deficiency anemia secondary to blood loss (chronic); E03.9 Hypothyroidism, unspecified; E78.5 Hyperlipidemia, unspecified; I10 Essential (primary) hypertension; I25.10 Atherosclerotic heart disease of native coronary artery without angina pectoris
CPT/HCPCS: 36415; 80061; 83721; 84439; 84443; 84480; 85025

== ENCOUNTER 2018-07-16 07:20 | Outpatient (CLI) | payer MEDICARE, OTHER ==
[2018-07-16 12:34] LABS: BASOPHILS # (AUTO) 0.1 10^3/uL (0.0-0.1); EOSINOPHILS # (AUTO) 0.3 10^3/uL (0.0-0.7); EOSINOPHILS % (AUTO) 5.3 %; HGB - HEMOGLOBIN 14.7 g/dL (12.0-16.0); LYMPHOCYTES # (AUTO) 1.9 10^3/uL (1.5-3.5); MEAN CORPUSCULAR HEMOGLOBIN 29.2 pg (27.0-31.0); MEAN CORPUSCULAR HGB CONC 33.2 g/dL (32.0-36.0); MEAN PLATELET VOLUME 9.9 fL (7.9-10.8); MONOCYTES # (AUTO) 0.7 10^3/uL (0.0-1.0); MONOCYTES % (AUTO) 10.3 %; NEUTROPHILS # (AUTO) 3.7 10^3/uL (1.5-6.6); NEUTROPHILS % (AUTO) 55.4 %; PLT - PLATELET COUNT 254 10^3/uL (130-450); RED BLOOD COUNT 5.05 10^6/uL (4.20-5.40); RED CELL DISTRIBUTION WIDTH 13.9 % (12.0-15.0); WHITE BLOOD COUNT 6.6 x10^3/uL (4.8-10.8)
[2018-07-16 12:39] LABS: ALBUMIN 3.9 g/dL (3.2-5.5); ALBUMIN/GLOBULIN RATIO 1.4 (1.0-2.2); ALKALINE PHOSPHATASE 95 IU/L (42-121); ALT ALANINE AMINOTRANSFERASE 21 IU/L (10-60); AST ASPARTATE AMINOTRANSFERASE 24 IU/L (10-42); BILIRUBIN,TOTAL 1.3 mg/dL (0.2-1.0); BUN - BLOOD UREA NITROGEN 17 mg/dL (6-20); CALCIUM 9.1 mg/dL (8.5-10.3); CARBON DIOXIDE - CO2 24 mmol/L (21-32); CHLORIDE 106 mmol/L (101-111); CHOL/HDL RATIO 3.2 (<4.4); CHOLESTEROL 186 mg/dL; CREATININE 0.7 mg/dL (0.4-1.0); GFR - MDRD 81 (>89); GLUCOSE 104 mg/dL (70-100); HDL CHOLESTEROL 58 mg/dL; LDL CHOLESTEROL,CALCULATED 86 mg/dL; LDL/HDL RATIO 1.5 (<4.4); SODIUM 140 mmol/L (135-145); TOTAL PROTEIN 6.6 g/dL (6.7-8.2); VLDL CHOLESTEROL 42 mg/dL
[2018-07-16 12:45] LABS: HB2 TOTAL 15.6 g/dL; HEMOGLOBIN A1C 0.6 g/dL; HEMOGLOBIN A1C % 5.7 % (4.6-6.2)
== END 2018-07-16 07:21 | disposition home or self-care (01) ==
LOC: LAB.WCP 07:20
PROVIDERS: ATTEND Family Medicine
DX: I10 Essential (primary) hypertension (principal); R73.01 Impaired fasting glucose; I25.10 Atherosclerotic heart disease of native coronary artery without angina pectoris
CPT/HCPCS: 36415; 80053; 80061; 83036; 83721; 84443; 85025

== ENCOUNTER 2018-08-04 18:09 | Outpatient (CLI) | payer MEDICARE, OTHER ==
--- NOTE | 2018-08-05 14:04 | Ultrasound Report ---
Reason: CAROTID ARTERIAL DISEASE, NECK MASS Procedure Date: 08/04/2018 Accession Number: [id number] / [id number] Procedure: US - Carotid Doppler Complete CPT Code: FULL RESULT: EXAM: BILATERAL CAROTID AND VERTEBRAL ARTERY DUPLEX DOPPLER ULTRASOUND: EXAM DATE: 08/04/2018 07:01 PM CLINICAL HISTORY: Carotid arterial disease, neck mass. COMPARISON: HEAD ANGIO 04/02/2018 9:10 AM. TECHNIQUE: Grayscale imaging, color Doppler, and duplex spectral Doppler were used to evaluate the carotid and vertebral arteries bilaterally. Static images were obtained. FINDINGS: Mild atheromatous plaques are present in the right carotid bulb extending into the internal carotid artery. However, no hemodynamically significant stenoses are noted. Mild atheromatous plaques are present in the left carotid bulb extending into the internal carotid artery. However, no hemodynamically significant stenoses are noted. Visualized portions of the neck soft tissues are grossly unremarkable. Both vertebral arteries are antegrade in flow. VELOCITIES (cm/sec): Right: RCCA Mid: PSV 91.3 cm/sec. RCCA Dist: PSV 76.18 cm/sec. PARRISH Prox: PSV 67.5 cm/sec, EDV 15.8 cm/sec. PARRISH Mid: PSV 61.0 cm/sec, EDV 14.5 cm/sec. PARRISH Dist: PSV 55.1 cm/sec, EDV 13.7 cm/sec. RECA: PSV 86.8 cm/sec. RVA: PSV 26.3 cm/sec. RVA flow direction: Antegrade. ICA/CCA: 0.74. Left: LCCA Mid: PSV 68.8 cm/sec. LCCA Dist: PSV 68.9 cm/sec. LICA Prox: PSV 62.9 cm/sec, EDV 15.3 cm/sec. LICA Mid: PSV 76.11 cm/sec, EDV 15.3 cm/sec. LICA Dist: PSV 75.1 cm/sec, EDV 22.7 cm/sec LECA: PSV 69.1 cm/sec. LVA: PSV 22.7 cm/sec. RVA flow direction: Antegrade. ICA/CCA: 1.10 ICA diameter stenosis: Right: <50% by velocity and <70% by NASCET criteria. Left: <50% by velocity and <70% by NASCET criteria. IMPRESSION: 1. Mild bilateral carotid artery plaquing. 2. In the right carotid artery there are no elevated carotid artery velocities to suggest hemodynamically significant stenosis. 3. In the left carotid artery there are no elevated carotid artery velocities to suggest hemodynamically significant stenosis. 4. Normal antegrade flow is present in bilateral vertebral arteries. General Recommendations: Stenosis =50% ICA - Follow-up ultrasound 6-12 months Stenosis <50% ICA - High Risk Patient with plaque - Follow-up ultrasound 1-2 years Normal Study but High Risk Patient - Follow-up ultrasound 3-5 years Management recommendations and diagnostic criteria are based on current IAC endorsed standards in Carotid Artery Stenosis: Grayscale and Doppler Ultrasound Diagnosis. Validated velocity measurements with angiographic measurements and velocity criteria are extrapolated from diameter data as defined by the Society of Radiologists in Ultrasound Consensus Conference Radiology 2003; 229;340-346. RADIA
--- NOTE | 2018-08-05 14:04 | Ultrasound Report ---
Reason: CAROTID ARTERIAL DISEASE, NECK MASS Procedure Date: 08/04/2018 Accession Number: [id number] / [id number] Procedure: US - Head or Neck Soft Tissue CPT Code: FULL RESULT: EXAM: THYROID ULTRASOUND EXAM DATE: 08/04/2018 06:56 PM. CLINICAL HISTORY: Carotid arterial disease, neck mass. COMPARISON: None. TECHNIQUE: Real time sonographic imaging of the thyroid was performed by the window systems administrator. Multiple medical office representative static images were saved for review. FINDINGS: THYROID GLAND: Right Lobe: 4.4 x 1.8 x 2 cm, volume 8.1 cc. Heterogeneous. No nodule. Right Lobe Nodules: None. Left Lobe: 3.3 x 1.3 x 1.6 cm, volume 3.6 cc. Heterogeneous. No nodule. Left Lobe Nodules: None. Isthmus: 0.3 cm AP. Isthmic Nodules: None. LYMPH NODES: No adenopathy demonstrated in the central or lateral compartment. OTHER: None. IMPRESSION: 1. Heterogeneous thyroid gland. No nodule. 2. No adenopathy. Management recommendations are based on 2015 [place] [employer] Management Guidelines for Adult Patients with Thyroid Nodules and Differentiated Thyroid Cancer. RADIA
== END 2018-08-04 18:10 | disposition home or self-care (01) ==
LOC: DI 18:09
PROVIDERS: ATTEND Family Medicine
DX: I77.9 Disorder of arteries and arterioles, unspecified (principal); R22.1 Localized swelling, mass and lump, neck
CPT/HCPCS: 76536; 93880

== ENCOUNTER 2018-09-12 09:35 | Outpatient (CLI) | payer MEDICARE, OTHER ==
[2018-09-12] MEDS ORDERED: IOPAMIDOL-300 100 ML VIAL ONE (09:39)
[2018-09-12 09:55] LABS: CREATININE 0.7 mg/dL (0.4-1.0)
[2018-09-12] MEDS ORDERED: IOPAMIDOL-300 100 ML VIAL IVP ONE (10:13)
--- NOTE | 2018-09-12 21:19 | CT Report ---
Reason: SUBMADIBULAR MASS, LEFT Procedure Date: 09/12/2018 Accession Number: [id number] / [id number] Procedure: CT - Facial Bones W/ CPT Code: FULL RESULT: EXAM: CT MAXILLOFACIAL WITH CONTRAST EXAM DATE: 09/12/2018 10:11 AM. CLINICAL HISTORY: 77-year-old female with left submandibular mass COMPARISONS: Ultrasound head or neck soft tissue 08/04/2018, CTA neck 04/02/2018 TECHNIQUE: Thin-section axial images were acquired of the face after administration of intravenous contrast. Post-processing: Coronal and sagittal reformats. Other: None. IV contrast: 80 cc Isovue-[address] protocol optimization, one or more of the following dose reduction techniques were utilized for this exam: automated exposure control, adjustment of mA and/or KV based on patient size, or use of iterative reconstructive technique. FINDINGS: Soft Tissue: No abnormal inflammation or fluid collection. No soft tissue mass. The infratemporal fossa and parapharyngeal spaces are unremarkable. Orbits: Status post bilateral lens replacement surgery. The visualized orbits are otherwise unremarkable. Bones: No fracture or bone lesion. Temporomandibular Joints: The temporomandibular joints are symmetric and normally located. Sinuses: Normal. No mucosal thickening or fluid levels. Glands: The parotid and submandibular glands are unremarkable. Other: Moderate multilevel degenerative spondylosis of the visualized cervical spine. IMPRESSION: No CT evidence of submandibular mass or mass anywhere else within the visualized structures. RADIA
== END 2018-09-12 09:36 | disposition home or self-care (01) ==
LOC: DI 09:35
PROVIDERS: ATTEND Family Medicine
DX: R22.1 Localized swelling, mass and lump, neck (principal); M47.812 Spondylosis without myelopathy or radiculopathy, cervical region
CPT/HCPCS: 36415; 70487; 82565; Q9967

== ENCOUNTER 2019-02-26 08:00 | Outpatient (CLI) | payer MEDICARE, OTHER ==
[2019-02-26 13:40] LABS: BASOPHILS # (AUTO) 0.1 10^3/uL (0.0-0.1); BASOPHILS % (AUTO) 1.2 %; EOSINOPHILS # (AUTO) 0.2 10^3/uL (0.0-0.7); EOSINOPHILS % (AUTO) 2.3 %; LYMPHOCYTES # (AUTO) 2.3 10^3/uL (1.5-3.5); MEAN CORPUSCULAR HGB CONC 32.6 g/dL (32.0-36.0); MEAN CORPUSCULAR VOLUME 89.1 fL (81.0-99.0); MONOCYTES # (AUTO) 0.7 10^3/uL (0.0-1.0); NEUTROPHILS % (AUTO) 54.5 %; PLT - PLATELET COUNT 269 10^3/uL (130-450); RED BLOOD COUNT 4.83 10^6/uL (4.20-5.40); RED CELL DISTRIBUTION WIDTH 13.5 % (12.0-15.0); WHITE BLOOD COUNT 7.3 x10^3/uL (4.8-10.8)
[2019-02-26 14:10] LABS: ALBUMIN 3.9 g/dL (3.2-5.5); ALBUMIN/GLOBULIN RATIO 1.4 (1.0-2.2); ALKALINE PHOSPHATASE 100 IU/L (42-121); ALT ALANINE AMINOTRANSFERASE 28 IU/L (10-60); AST ASPARTATE AMINOTRANSFERASE 32 IU/L (10-42); BILIRUBIN,TOTAL 1.4 mg/dL (0.2-1.0); BUN - BLOOD UREA NITROGEN 18 mg/dL (6-20); CALCIUM 9.1 mg/dL (8.5-10.3); CARBON DIOXIDE - CO2 25 mmol/L (21-32); CHLORIDE 109 mmol/L (101-111); CHOL/HDL RATIO 3.5 (<4.4); CHOLESTEROL 180 mg/dL; CREATININE 0.7 mg/dL (0.4-1.0); GFR - MDRD 81 (>89); GLUCOSE 109 mg/dL (70-100); HDL CHOLESTEROL 51 mg/dL; LDL CHOLESTEROL,CALCULATED 88 mg/dL; LDL/HDL RATIO 1.7 (<4.4); SODIUM 141 mmol/L (135-145); TOTAL PROTEIN 6.7 g/dL (6.7-8.2); VLDL CHOLESTEROL 41 mg/dL
[2019-02-26 14:16] LABS: HB2 TOTAL 15.3 g/dL; HEMOGLOBIN A1C 0.58 g/dL; HEMOGLOBIN A1C % 5.6 % (4.6-6.2)
== END 2019-02-26 23:59 | disposition home or self-care (01) ==
LOC: LAB.WCP 08:00
PROVIDERS: ATTEND Family Medicine
DX: I25.10 Atherosclerotic heart disease of native coronary artery without angina pectoris (principal); R73.01 Impaired fasting glucose; I10 Essential (primary) hypertension
CPT/HCPCS: 36415; 80053; 80061; 83036; 83721; 84443; 85025

== ENCOUNTER 2019-03-04 12:13 | Outpatient (CLI) | payer MEDICARE, OTHER ==
--- NOTE | 2019-03-04 15:09 | Mammography Report ---
Reason: SCREENING MAMMO Procedure Date: 03/04/2019 Accession Number: [id number] / [id number] Procedure: MGN - Screening Mammo Dig Bilat CPT Code: FULL RESULT: EXAM: Screening Mammo Dig Bilat DATE: 03/04/2019 12:31 PM CLINICAL HISTORY: Screening encounter. History of early menses. TECHNIQUE: (B) - Bilateral CC and MLO views were obtained. COMPARISON: 12/04/2017 through 09/29/2014. PARENCHYMAL PATTERN: (A) - The breast(s) demonstrate(s) scattered fibroglandular densities. FINDINGS: Multiple bilateral nodules demonstrate long-term stability, typically benign. Typically benign vascular calcifications and typically benign coarse calcifications are noted. There are no suspicious masses, calcifications, or areas of distortion. IMPRESSION: Benign findings. BI-RADS category 2. RECOMMENDATION: (ANNUAL) - Recommend routine annual screening mammography. BI-RADS CATEGORY: (2) - Benign Findings. STANDARD QUALIFYING STATEMENTS: 1. This examination was not reviewed with the aid of Computer-Aided Detection (CAD). 2. A negative or benign imaging report should not preclude biopsy if clinically suspicious findings are present. 3. Dense breasts may obscure an underlying neoplasm. 4. This examination was reviewed without the aid of 3D breast imaging (tomosynthesis).
== END 2019-03-04 12:14 | disposition home or self-care (01) ==
LOC: DI.N 12:13
DX: Z12.31 Encounter for screening mammogram for malignant neoplasm of breast (principal)
CPT/HCPCS: 77067

== ENCOUNTER 2019-04-08 09:05 | Emergency (ER) | payer MEDICARE, OTHER ==
--- NOTE | 2019-04-08 09:33 | ED Physician Documentation ---
PD HPI CHEST PAIN - Stated complaint Stated Complaint: CHEST PRESSURE - Chief complaint Chief Complaint: Cardiac - History obtained from History obtained from: Patient - History of Present Illness Timing - onset: How many months ago (one month or more) Timing - onset during: Rest Timing - duration: Minutes Timing - details: Intermittant Quality: Tightness Location: Substernal Similar symptoms before: Diagnosis (History of CAD with angina.) - Additional information Additional information: The patient is a 78-year-old female with history of coronary artery disease, 1 year status post CABG, who presents with substernal chest pressure that has been occurring intermittently for the past month or more. She does not currently have chest discomfort. When it does come it lasts for up to 1 minute before resolving spontaneously. However it has been occurring with greater frequency recently. She reports associated fatigue, and has noticed slight swelling in her legs. She states the symptoms occur more commonly when at rest, and do not occur with exertion. She does get mild exertional shortness of breath. She denies nausea, vomiting, cough, or fever. She denies dysuria, but has been experiencing frequency of urination. Review of Systems Constitutional: reports: Fatigue. denies: Fever Ears: denies: Tinnitus/ringing Nose: denies: Congestion Throat: denies: Sore throat Cardiac: reports: Chest pain / pressure. denies: Palpitations Respiratory: reports: Dyspnea (mild exertional dyspnea). denies: Cough GI: denies: Abdominal Pain, Nausea, Vomiting : reports: Frequency. denies: Dysuria Skin: denies: Rash Musculoskeletal: reports: Extremity swelling (mild). denies: Back pain, Extremity pain Neurologic: denies: Focal weakness, Numbness, Headache PD PAST MEDICAL HISTORY - Past Medical History Cardiovascular: Hypertension, High cholesterol, Coronary artery disease Respiratory: None Endocrine/Autoimmune: HyPOthyroidism GI: GERD : Frequency HEENT: None Psych: None Musculoskeletal: Osteoarthritis Derm: Rosacea - Past Surgical History General: Appendectomy, Bowel surgery, Colonoscopy Ortho: Knee replacement, Arthroscopic surgery, Other /HAY STACKER: Hysterectomy, Oophrectomy Cardiovascular: CABG HEENT: Tonsil/Adenoidectomy - Present Medications Home Medications: Ambulatory Orders Medication Instructions Recorded Confirmed Atorvastatin Calcium [Lipitor] 80 mg PO HS 07/29/13 04/08/19 Clobetasol Propionate/Emoll 1 applic TOP DAILY PRN 07/29/13 04/08/19 [Clobetasol Emollient 0.05% Crm] Levothyroxine [Synthroid] 50 mcg PO QDAC 07/29/13 04/08/19 Multivitamin [Multivitamins] 1 each PO DAILY 07/29/13 04/08/19 Metoprolol Succinate 50 BID 04/02/18 Amlodipine Besylate 5 mg ORAL BID 04/08/19 04/08/19 Aspirin Chewable [[place] 1 tab ORAL DAILY 04/08/19 04/08/19 Aspirin] Cholecalciferol (Vitamin D3) 1 tab ORAL DAILY 04/08/19 04/08/19 [Vitamin D3] Furosemide [Lasix] 1 tab ORAL DAILY 04/08/19 04/08/19 Isosorbide Mononitrate ER [Imdur] 1 tab ORAL DAILY 04/08/19 04/08/19 Nitroglycerin [Nitrostat] PRN 04/08/19 - Allergies Allergies/Adverse Reactions: Allergies Allergy/AdvReac Type Severity Reaction Status Date / Time metoclopramide HCl * Allergy VIOLENTLY Verified 04/08/19 09:19 [From Reglan] ILL acetaminophen [From Vicodin] AdvReac Nausea Verified 04/08/19 09:19 hydrocodone bitartrate * AdvReac Nausea Verified 04/08/19 09:19 [From Vicodin] morphine AdvReac NAUSEA/EMES Verified 04/08/19 09:19 IS - Social History Does the pt smoke?: No Smoking Status: Never smoker Does the pt have substance abuse?: No - Immunizations Immunizations are current?: Yes PD ED PE NORMAL - Vitals Vital signs reviewed: Yes (hypertensive) - General General: Alert and oriented X 3, Well developed/nourished - HEENT HEENT: Atraumatic, Moist mucous membranes, Pharynx benign - Neck Neck: No adenopathy, No JVD - Cardiac Cardiac: RRR - Respiratory Respiratory: No respiratory distress, Clear bilaterally, Other (No chest wall tenderness to palpation.) - Abdomen Abdomen: Soft, Non tender - Back Back: No CVA TTP - Derm Derm: No rash - Extremities Extremities: No calf tenderness / cord, Other (Trace pedal edema.) - Neuro Neuro: Alert and oriented X 3, No motor deficit, No sensory deficit Results - Vitals Vitals: Vital Signs - 24 hr 04/08/19 04/08/19 04/08/19 09:11 09:54 10:00 Temperature 36.8 C Heart Rate 78 80 77 Respiratory 16 20 12 Rate Blood Pressure 163/78 H 137/73 H 120/71 O2 Saturation 98 96 97 04/08/19 04/08/19 04/08/19 11:00 11:44 12:03 Temperature 36.5 C Heart Rate 62 79 Respiratory 12 21 Rate Blood Pressure 137/77 H 152/77 H O2 Saturation 96 96 Oxygen O2 Source Room air - EKG (time done) 09:08 Rate: Rate (enter#) (98) Rhythm: NSR [place]: Normal Intervals: RBBB Ischemia: Non specific changes Other comments: Other comments (Paired PVC's.) Compare to prior EKG: Unchanged from prior EKG Computer interpretation: Agree with computer - Labs Labs: Laboratory Tests 04/08/19 04/08/19 04/08/19 09:20 09:20 09:20 WBC 8.7 RBC 4.89 Hgb 14.2 Hct 43.0 MCV 87.9 MCH 29.1 MCHC 33.2 RDW 13.4 Plt Count 261 MPV 9.3 Neut # (Auto) 5.7 Lymph # (Auto) 2.1 Weld # (Auto) 0.8 Eos # (Auto) 0.1 Baso # (Auto) 0.1 Absolute Nucleated RBC 0.00 Nucleated RBC % 0.0 Sodium Potassium Chloride Carbon Dioxide Anion Gap BUN Creatinine Estimated GFR (MDRD) Glucose Calcium Total Bilirubin AST ALT Alkaline Phosphatase Troponin I < 0.04 B-Natriuretic Peptide 65 Total Protein Albumin Globulin Albumin/Globulin Ratio Lipase Urine Color Urine Clarity Urine pH Ur Specific [place] Urine Protein Urine Glucose (UA) Urine Ketones Urine Occult Blood Urine Nitrite Urine Bilirubin Urine Urobilinogen Ur Leukocyte Esterase Ur Microscopic Review Urine Culture Comments 04/08/19 04/08/19 09:45 Unknown WBC RBC Hgb Hct MCV MCH MCHC RDW Plt Count MPV Neut # (Auto) Lymph # (Auto) Weld # (Auto) Eos # (Auto) Baso # (Auto) Absolute Nucleated RBC Nucleated RBC % Sodium 142 Potassium 3.4 L Chloride 106 Carbon Dioxide 24 Anion Gap 12.0 BUN 15 Creatinine 0.7 Estimated GFR (MDRD) 81 L Glucose 136 H Calcium 9.4 Total Bilirubin 2.0 H AST 33 ALT 30 Alkaline Phosphatase 101 Troponin I B-Natriuretic Peptide Total Protein 7.5 Albumin 4.3 Globulin 3.2 Albumin/Globulin Ratio 1.3 Lipase 46 Urine Color YELLOW Urine Clarity CLEAR Urine pH 6.5 Ur Specific [place] 1.010 Urine Protein NEGATIVE Urine Glucose (UA) NEGATIVE Urine Ketones NEGATIVE Urine Occult Blood TRACE-INTA Urine Nitrite NEGATIVE Urine Bilirubin NEGATIVE Urine Urobilinogen 0.2 (NORMAL) Ur Leukocyte Esterase NEGATIVE Ur Microscopic Review NOT INDICATED Urine Culture Comments NOT INDICATED - Rads (name of study) Portable CXR Radiology: Prelim report reviewed, EMP read contemporaneously, See rad report (No consolidation evident.) PD MEDICAL DECISION MAKING - ED course Complexity details: reviewed old records, reviewed results, re-evaluated patient, considered differential, d/w patient, d/w family, d/w security consultant ED course: The patient's presentation is most consistent with angina in a patient with known coronary artery disease. There is no evidence of acute myocardial infarction, with no change in her EKG, and normal troponin. There is no evidence of congestive heart failure, or pulmonary abnormality. She did not have any recurrent episodes of chest discomfort while in the emergency department. I discussed her presentation with Dr. Sawant, her glass furnace operator. He advises doubling her dose of isosorbide, and his staff will arrange for urgent follow-up. I discussed with her the diagnosis, symptomatic treatment and follow-up with her glass furnace operator, as well as potentially worrisome signs or symptoms that should prompt reevaluation in the emergency department. Departure - Departure Disposition: 01 Home, Self Care Clinical Impression: Angina concurrent with and due to arteriosclerosis of coronary artery Condition: Stable Instructions: ED Chest Pain Angina Stable Follow-Up: Cat Haddad DO [Provider Admit Priv/Credential] - Edward Sawant MD [Physician No Access] - Comments: Double your isosorbide dose to 60 mg. Continue your other medications as previously prescribed. Staff from Dr. Sawant's office will be contacting you to schedule follow-up. Return to the emergency department if you develop increasing or persistent pain, shortness of breath, or otherwise worsening symptoms. Discharge Date/Time: 04/08/19 12:04
[2019-04-08 09:44] LABS: BASOPHILS # (AUTO) 0.1 10^3/uL (0.0-0.1); BASOPHILS % (AUTO) 0.6 %; EOSINOPHILS # (AUTO) 0.1 10^3/uL (0.0-0.7); EOSINOPHILS % (AUTO) 1.4 %; HGB - HEMOGLOBIN 14.2 g/dL (12.0-16.0); LYMPHOCYTES # (AUTO) 2.1 10^3/uL (1.5-3.5); MEAN CORPUSCULAR HEMOGLOBIN 29.1 pg (27.0-31.0); MEAN CORPUSCULAR HGB CONC 33.2 g/dL (32.0-36.0); MEAN CORPUSCULAR VOLUME 87.9 fL (81.0-99.0); MEAN PLATELET VOLUME 9.3 fL (7.9-10.8); MONOCYTES # (AUTO) 0.8 10^3/uL (0.0-1.0); MONOCYTES % (AUTO) 8.9 %; NEUTROPHILS # (AUTO) 5.7 10^3/uL (1.5-6.6); NEUTROPHILS % (AUTO) 65.1 %; PLT - PLATELET COUNT 261 10^3/uL (130-450); RED BLOOD COUNT 4.89 10^6/uL (4.20-5.40); RED CELL DISTRIBUTION WIDTH 13.4 % (12.0-15.0); WHITE BLOOD COUNT 8.7 x10^3/uL (4.8-10.8)
[2019-04-08 09:58] LABS: CREATININE 0.7 mg/dL (0.4-1.0)
--- NOTE | 2019-04-08 09:58 | XRAY Report ---
Reason: chest pain Procedure Date: 04/08/2019 Accession Number: [id number] / [id number] Procedure: XR - Chest 1 View X-Ray CPT Code: 45869 FULL RESULT: EXAM: CHEST RADIOGRAPHY EXAM DATE: 04/08/2019 09:28 AM. CLINICAL HISTORY: Chest pain. Greater than one-month duration. COMPARISON: None. TECHNIQUE: 1 view. FINDINGS: Lungs/Pleura: No focal opacities evident. No pleural effusion. No pneumothorax. Mediastinum: Prior sternotomy. Atherosclerotic aortic calcifications. Probable prior CABG. Other: Bones appear osteopenic. IMPRESSION: No consolidation evident. RADIA
[2019-04-08 10:04] LABS: BILIRUBIN,URINE NEGATIVE (NEGATIVE); GLUCOSE, URINE (UA) NEGATIVE (NEGATIVE); KETONES,URINE (UA) NEGATIVE (NEGATIVE); LEUKOCYTE ESTERASE, URINE NEGATIVE (NEGATIVE); NITRITE,URINE NEGATIVE (NEGATIVE); OCCULT BLOOD,URINE TRACE-INTA (NEGATIVE); PH,URINE 6.5 PH (5.0-7.5); PROTEIN,URINE NEGATIVE (NEGATIVE); UROBILINOGEN,URINE 0.2 (NORMAL) E.U./dL (NORMAL)
[2019-04-08 10:08] LABS: CLARITY,URINE CLEAR (CLEAR)
[2019-04-08 10:33] LABS: ALBUMIN 4.3 g/dL (3.2-5.5); ALBUMIN/GLOBULIN RATIO 1.3 (1.0-2.2); CALCIUM 9.4 mg/dL (8.5-10.3); TOTAL PROTEIN 7.5 g/dL (6.7-8.2)
[2019-04-08 11:45] VITALS: BP 152/77
== END 2019-04-08 12:04 | disposition home or self-care (01) ==
LOC: ED 09:05
DX: I25.119 Atherosclerotic heart disease of native coronary artery with unspecified angina pectoris (principal); I10 Essential (primary) hypertension; Z95.1 Presence of aortocoronary bypass graft; I45.10 Unspecified right bundle-branch block; I49.3 Ventricular premature depolarization; Z79.82 Long term (current) use of aspirin
CPT/HCPCS: 36415; 71045; 80053; 81001; 81003; 83690; 83880; 84484; 85025; 87086; 93005; 99284

== ENCOUNTER 2019-10-20 07:02 | Outpatient (CLI) | payer MEDICARE, OTHER ==
[2019-10-20 13:00] LABS: CALCIUM 9.5 mg/dL (8.5-10.3); CREATININE 0.7 mg/dL (0.4-1.0)
[2019-10-20 13:25] LABS: HB2 TOTAL 14.3 g/dL; HEMOGLOBIN A1C 0.58 g/dL; HEMOGLOBIN A1C % 5.9 % (4.6-6.2)
== END 2019-10-20 23:59 | disposition home or self-care (01) ==
LOC: LAB.WCP 07:02
PROVIDERS: ATTEND Family Medicine
DX: R73.01 Impaired fasting glucose (principal)
CPT/HCPCS: 36415; 80048; 83036

== ENCOUNTER 2020-03-09 07:41 | Outpatient (CLI) | payer MEDICARE, OTHER ==
--- NOTE | 2020-03-09 09:29 | Ultrasound Report ---
Reason: UMBILICAL AND VENTRAL HERNIAS Procedure Date: 03/09/2020 Accession Number: [id number] / [id number] Procedure: US - Abdomen Limited CPT Code: Final Report FULL RESULT: EXAM: ABDOMEN ULTRASOUND LIMITED EXAM DATE: 03/09/2020 08:24 AM. CLINICAL HISTORY: UMBILICAL AND VENTRAL HERNIAS. COMPARISON: None. TECHNIQUE: Real-time scanning was performed with static images obtained. Region of interest: Upper abdomen to the right of midline in the region of the reported palpable lump. FINDINGS: At the area of clinical concern at the upper abdomen the right of midline there is a nonreducible hernia which appears to contain fat. The hernia neck measures 12 x 11 mm. There is a reducible fat-containing umbilical hernia. The hernia neck measures 11 x 9 mm. IMPRESSION: 1. Fat-containing upper abdominal ventral and umbilical hernias. RADIA
== END 2020-03-09 07:42 | disposition home or self-care (01) ==
LOC: DI 07:41
PROVIDERS: ATTEND Family Medicine
DX: K42.9 Umbilical hernia without obstruction or gangrene (principal); K43.9 Ventral hernia without obstruction or gangrene
CPT/HCPCS: 76705

== ENCOUNTER 2020-05-05 11:46 | Outpatient (CLI) | payer MEDICARE, OTHER | END 2020-05-05 11:47 | disposition home or self-care (01) | LOC: LAB 11:46 | PROVIDERS: ATTEND Internal Medicine | DX: Z11.59 Encounter for screening for other viral diseases (principal) | CPT/HCPCS: 81599 ==

== ENCOUNTER 2020-09-18 10:18 | Emergency (ER) | payer MEDICARE, OTHER ==
--- NOTE | 2020-09-18 10:51 | ED Physician Documentation ---
PD HPI CHEST PAIN - Stated complaint Stated Complaint: LIGHT HEADED - Chief complaint Chief Complaint: Cardiac - History obtained from History obtained from: Patient - History of Present Illness Timing - onset: Today, Yesterday Timing - onset during: Rest Timing - duration: Minutes (had episode yesterday of lightheadedness and feeling heart rate fast (she says about 120), that lasted few minutes, then improved. occurred again today an hour or so ago and still feeling generally weak, though heart rate does not feeling racing still.) Timing - details: Abrupt onset, Now resolved Quality: Tightness. No: Pressure Location: Substernal Radiation: No: Jaw, Neck Improved by: Rest Worsened by: No: Inspiration, Movement Associated symptoms: Shortness of air, Feeling faint / dizzy (s), Palpitations Similar symptoms before: Diagnosis (symptoms similar to CAD prior to stent placement 10 years ago.) Recently seen: Not recently seen Review of Systems Constitutional: denies: Fever, Chills Nose: denies: Rhinorrhea / runny nose, Congestion Throat: denies: Sore throat Cardiac: reports: Palpitations, Pedal edema (for past 1-2 weeks, and has HCTZ at home to use PRN swelling, but only took a dose today without much change. Feeling only urination small amounts.). denies: Calf pain Respiratory: reports: Dyspnea (worse with walking or lying flat.). denies: Cough GI: denies: Abdominal Pain, Diarrhea : reports: Hesitancy. 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 Cardiovascular: CABG HEENT: Tonsil/Adenoidectomy - Present Medications Home Medications: Ambulatory Orders Medication Instructions Recorded Confirmed Atorvastatin Calcium [Lipitor] 80 mg PO HS 07/29/13 04/08/19 Clobetasol Propionate/Emoll 1 applic TOP DAILY PRN 07/29/13 04/08/19 [Clobetasol Emollient 0.05% Crm] Levothyroxine [Synthroid] 50 mcg PO QDAC 07/29/13 04/08/19 Multivitamin [Multivitamins] 1 each PO DAILY 07/29/13 04/08/19 Metoprolol Succinate 50 BID 04/02/18 Amlodipine Besylate 5 mg ORAL BID 04/08/19 04/08/19 Aspirin Chewable [[place] 1 tab ORAL DAILY 04/08/19 04/08/19 Aspirin] Cholecalciferol (Vitamin D3) 1 tab ORAL DAILY 04/08/19 04/08/19 [Vitamin D3] Furosemide [Lasix] 1 tab ORAL DAILY 04/08/19 04/08/19 Isosorbide Mononitrate ER [Imdur] 1 tab ORAL DAILY 04/08/19 04/08/19 Nitroglycerin [Nitrostat] PRN 04/08/19 Potassium Chloride 10 meq PO DAILY #20 tablet.er 09/18/20 - Allergies Allergies/Adverse Reactions: Allergies Allergy/AdvReac Type Severity Reaction Status Date / Time metoclopramide HCl * Allergy VIOLENTLY Verified 09/18/20 10:36 [From Reglan] ILL acetaminophen [From Vicodin] AdvReac Nausea Verified 09/18/20 10:36 hydrocodone bitartrate * AdvReac Nausea Verified 09/18/20 10:36 [From Vicodin] morphine AdvReac NAUSEA/EMES Verified 09/18/20 10:36 IS - Social History Does the pt smoke?: No Smoking Status: Never smoker Does the pt drink ETOH?: Yes Does the pt have substance abuse?: No - Immunizations Immunizations are current?: Yes PD ED PE NORMAL - Vitals Vital signs reviewed: Yes - General General: Alert and oriented X 3, No acute distress, Well developed/nourished - HEENT HEENT: Moist mucous membranes, Pharynx benign - Neck Neck: Supple, no meningeal sign, No adenopathy - Cardiac Cardiac: No murmur. No: RRR - Respiratory Respiratory: Clear bilaterally - Abdomen Abdomen: Soft, Non tender - Derm Derm: Normal color, Warm and dry - Extremities Extremities: No calf tenderness / cord, Other (1+ edema in both lower legs and ankles. ) - Neuro Neuro: Alert and oriented X 3, No motor deficit, Normal speech Results - Vitals Vitals: Vital Signs - 24 hr 09/18/20 09/18/20 09/18/20 10:24 11:28 11:52 Temperature 36.8 C Heart Rate 94 93 104 H Respiratory 20 18 25 H Rate Blood Pressure 120/64 134/72 H 130/59 L O2 Saturation 97 99 09/18/20 09/18/20 11:56 13:27 Temperature Heart Rate 86 96 Respiratory 18 15 Rate Blood Pressure 125/64 135/79 H O2 Saturation 100 98 Oxygen O2 Source Room air - EKG (time done) 10:31 Rate: Rate (enter#) (99) Rhythm: NSR [place]: Normal Intervals: Normal [place] QRS: Normal Ischemia: Normal ST segments. No: ST elevation c/w ischemia, ST depression - Labs Labs: Laboratory Tests 09/18/20 09/18/20 09/18/20 11:07 11:07 11:07 WBC 8.6 RBC 5.01 Hgb 14.9 Hct 44.5 MCV 88.8 MCH 29.7 MCHC 33.5 RDW 13.2 Plt Count 290 MPV 11.6 H Neut # (Auto) 6.2 Lymph # (Auto) 1.4 L [place] # (Auto) 0.9 Eos # (Auto) 0.1 Baso # (Auto) 0.0 Absolute Nucleated RBC 0.00 Nucleated RBC % 0.0 Sodium 137 Potassium 3.2 L Chloride 100 L Carbon Dioxide 24 Anion Gap 13.0 BUN 18 Creatinine 0.7 Estimated GFR (MDRD) 81 L Glucose 156 H Calcium 9.9 Magnesium 2.1 Total Bilirubin 1.6 H AST 34 ALT 38 Alkaline Phosphatase 90 Troponin I High Sens 6.4 B-Natriuretic Peptide Total Protein 7.2 Albumin 4.4 Globulin 2.8 Albumin/Globulin Ratio 1.6 Lipase 42 Urine Color Urine Clarity Urine pH Ur Specific [place] Urine Protein Urine Glucose (UA) Urine Ketones Urine Occult Blood Urine Nitrite Urine Bilirubin Urine Urobilinogen Ur Leukocyte Esterase Ur Microscopic Review Urine Culture Comments 09/18/20 09/18/20 11:07 12:50 WBC RBC Hgb Hct MCV MCH MCHC RDW Plt Count MPV Neut # (Auto) Lymph # (Auto) [place] # (Auto) Eos # (Auto) Baso # (Auto) Absolute Nucleated RBC Nucleated RBC % Sodium Potassium Chloride Carbon Dioxide Anion Gap BUN Creatinine Estimated GFR (MDRD) Glucose Calcium Magnesium Total Bilirubin AST ALT Alkaline Phosphatase Troponin I High Sens B-Natriuretic Peptide 33 Total Protein Albumin Globulin Albumin/Globulin Ratio Lipase Urine Color YELLOW Urine Clarity CLEAR Urine pH 7.0 Ur Specific [place] 1.020 Urine Protein NEGATIVE Urine Glucose (UA) NEGATIVE Urine Ketones NEGATIVE Urine Occult Blood NEGATIVE Urine Nitrite NEGATIVE Urine Bilirubin NEGATIVE Urine Urobilinogen 0.2 (NORMAL) Ur Leukocyte Esterase NEGATIVE Ur Microscopic Review NOT INDICATED Urine Culture Comments NOT INDICATED PD MEDICAL DECISION MAKING - ED course Complexity details: reviewed results (Potassium low. No signs of GA nor CHF. Consider anginal equivelant. Suggest having her follow up with her Sanitation Lead. Clinically seems some CHF with edema and dyspnea/orthopnea. ), considered differential (had feeling of heart racing and lightheaded. Consider atrial fib episode or SVT. Normal rhythm here. ), d/w patient Departure - Departure Disposition: 01 Home, Self Care Clinical Impression: Episodic lightheadedness, Heart rate fast, Hypokalemia Condition: Stable Record reviewed to determine appropriate education?: Yes Follow-Up: Cat Haddad DO [Primary Care Provider] - Prescriptions: Potassium Chloride 10 meq PO DAILY #20 tablet.er Comments: Use your water pill at home daily for the next week. Add a potassium supplement orally for the next 2 weeks. Continue your other usual medicines. Follow-up with your primary care if not improving in the next few days. Call your sap manager as well to arrange a follow-up. Tell them you were in the ER for shortness of breath and my suggestion would be a Holter monitor type device to evaluate if you are having episodic irregular heartbeats. Discharge Date/Time: 09/18/20 14:24
[2020-09-18] MEDS ORDERED: FUROSEMIDE 40 MG/4 ML VIAL IVP STA (11:45)
--- NOTE | 2020-09-18 12:08 | XRAY Report ---
PROCEDURE: Chest 1 View X-Ray INDICATIONS: Chest Pain TECHNIQUE: One view of the chest was acquired. COMPARISON: 04/08/2019 FINDINGS: Surgical changes and devices: Median sternotomy and CABG changes are present. Lungs and pleura: No pleural effusions or pneumothorax. Slight hyperinflation and mild peribronchia l thickening. Lungs are otherwise clear. Mediastinum: Mediastinal contours appear normal. No significant central venous congestion. Heart si ze is normal. Bones and chest wall: No suspicious bony lesions. Overlying soft tissues appear unremarkable. IMPRESSION: 1. Changes suggestive of emphysema and/or bronchitis, acute versus chronic. 2. Post CABG. 3. No significant central venous congestion. Reviewed by: Yuki Gilliland MD on 09/18/2020 12:07 PM PST Approved by: Yuki Gilliland MD on 09/18/2020 12:07 PM PST Station ID: [id number]
[2020-09-18 12:11] LABS: BASOPHILS % (AUTO) 0.5 %; EOSINOPHILS # (AUTO) 0.1 10^3/uL (0.0-0.7); EOSINOPHILS % (AUTO) 1.2 %; HGB - HEMOGLOBIN 14.9 g/dL (12.0-16.0); LYMPHOCYTES # (AUTO) 1.4 10^3/uL (1.5-3.5); LYMPHOCYTES % (AUTO) 15.9 %; MEAN CORPUSCULAR HEMOGLOBIN 29.7 pg (27.0-31.0); MEAN CORPUSCULAR HGB CONC 33.5 g/dL (32.0-36.0); MEAN CORPUSCULAR VOLUME 88.8 fL (81.0-99.0); MEAN PLATELET VOLUME 11.6 fL (7.9-10.8); MONOCYTES # (AUTO) 0.9 10^3/uL (0.0-1.0); MONOCYTES % (AUTO) 10.1 %; NEUTROPHILS # (AUTO) 6.2 10^3/uL (1.5-6.6); NEUTROPHILS % (AUTO) 71.8 %; PLT - PLATELET COUNT 290 10^3/uL (130-450); RED BLOOD COUNT 5.01 10^6/uL (4.20-5.40); RED CELL DISTRIBUTION WIDTH 13.2 % (12.0-15.0); WHITE BLOOD COUNT 8.6 x10^3/uL (4.8-10.8)
[2020-09-18 12:27] LABS: ALBUMIN 4.4 g/dL (3.2-5.5); ALBUMIN/GLOBULIN RATIO 1.6 (1.0-2.2); BILIRUBIN,TOTAL 1.6 mg/dL (0.2-1.0); CALCIUM 9.9 mg/dL (8.5-10.3); CREATININE 0.7 mg/dL (0.4-1.0); MAGNESIUM 2.1 mg/dL (1.7-2.8); TOTAL PROTEIN 7.2 g/dL (6.7-8.2)
[2020-09-18] MEDS ORDERED: POTASSIUM CHLOR 10 MEQ/100 ML 10 MEQ/100 ML BAG IV ONE (12:46)
[2020-09-18] MEDS ORDERED: POTASSIUM CHLORIDE 20 MEQ TABLET PO STA (12:46)
[2020-09-18 13:14] LABS: BILIRUBIN,URINE NEGATIVE (NEGATIVE); GLUCOSE, URINE (UA) NEGATIVE (NEGATIVE); KETONES,URINE (UA) NEGATIVE (NEGATIVE); LEUKOCYTE ESTERASE, URINE NEGATIVE (NEGATIVE); NITRITE,URINE NEGATIVE (NEGATIVE); OCCULT BLOOD,URINE NEGATIVE (NEGATIVE); PROTEIN,URINE NEGATIVE (NEGATIVE); UROBILINOGEN,URINE 0.2 (NORMAL) E.U./dL (NORMAL)
[2020-09-18 13:17] LABS: CLARITY,URINE CLEAR (CLEAR)
[2020-09-18 13:28] VITALS: BP 135/79
== END 2020-09-18 14:24 | disposition home or self-care (01) ==
LOC: ED 10:18
DX: R42 Dizziness and giddiness (principal); R00.0 Tachycardia, unspecified; E87.6 Hypokalemia; R60.0 Localized edema; I10 Essential (primary) hypertension; I25.10 Atherosclerotic heart disease of native coronary artery without angina pectoris; Z95.1 Presence of aortocoronary bypass graft; Z79.82 Long term (current) use of aspirin
CPT/HCPCS: 36415; 71045; 80053; 81003; 83690; 83735; 83880; 84484; 85025; 93005; 96365; 96375; 99284; A9270; 81001; 87086

== ENCOUNTER 2020-09-21 13:54 | Outpatient (CLI) | payer MEDICARE, OTHER | END 2020-09-21 13:55 | disposition home or self-care (01) | LOC: LAB 13:54 | PROVIDERS: ATTEND Family Medicine | DX: R00.0 Tachycardia, unspecified (principal); Z86.718 Personal history of other venous thrombosis and embolism | CPT/HCPCS: 36415; 85379 ==

== ENCOUNTER 2020-09-25 09:26 | Outpatient (CLI) | payer MEDICARE, OTHER ==
[2020-09-25 13:16] LABS: BUN - BLOOD UREA NITROGEN < 5 mg/dL (6-20); CARBON DIOXIDE - CO2 30 mmol/L (21-32); CHLORIDE 92 mmol/L (101-111); GLUCOSE 153 mg/dL (70-100); SODIUM 141 mmol/L (135-145)
[2020-09-25 13:18] LABS: CREATININE < 0.3 mg/dL (0.4-1.0)
== END 2020-09-25 23:59 | disposition home or self-care (01) ==
LOC: LAB.WCP 09:26
PROVIDERS: ATTEND Family Medicine
DX: E87.6 Hypokalemia (principal); E03.9 Hypothyroidism, unspecified
CPT/HCPCS: 36415; 80048; 84443

== ENCOUNTER 2020-10-03 08:00 | Outpatient (CLI) | payer MEDICARE, OTHER ==
[2020-10-03 12:14] LABS: CALCIUM 9.7 mg/dL (8.5-10.3)
== END 2020-10-03 23:59 | disposition home or self-care (01) ==
LOC: LAB.WCP 08:00
PROVIDERS: ATTEND Family Medicine
DX: E87.6 Hypokalemia (principal)
CPT/HCPCS: 36415; 80048

== ENCOUNTER 2021-03-26 08:00 | Outpatient (CLI) | payer MEDICARE, OTHER ==
[2021-03-26 18:33] LABS: BASOPHILS # (AUTO) 0.1 10^3/uL (0.0-0.1); BASOPHILS % (AUTO) 0.6 %; EOSINOPHILS # (AUTO) 0.1 10^3/uL (0.0-0.7); EOSINOPHILS % (AUTO) 1.6 %; HCT - HEMATOCRIT 44.4 % (37.0-47.0); HGB - HEMOGLOBIN 14.2 g/dL (12.0-16.0); LYMPHOCYTES # (AUTO) 1.8 10^3/uL (1.5-3.5); LYMPHOCYTES % (AUTO) 20.1 %; MEAN CORPUSCULAR VOLUME 90.8 fL (81.0-99.0); MEAN PLATELET VOLUME 11.8 fL (7.9-10.8); MONOCYTES # (AUTO) 0.8 10^3/uL (0.0-1.0); MONOCYTES % (AUTO) 9.3 %; NEUTROPHILS % (AUTO) 68.1 %; PLT - PLATELET COUNT 270 10^3/uL (130-450); RED BLOOD COUNT 4.89 10^6/uL (4.20-5.40); RED CELL DISTRIBUTION WIDTH 13.1 % (12.0-15.0); WHITE BLOOD COUNT 8.8 x10^3/uL (4.8-10.8)
[2021-03-26 19:03] LABS: ALBUMIN 4.1 g/dL (3.2-5.5); ALBUMIN/GLOBULIN RATIO 1.5 (1.0-2.2); ALKALINE PHOSPHATASE 100 IU/L (42-121); ALT ALANINE AMINOTRANSFERASE 28 IU/L (10-60); AST ASPARTATE AMINOTRANSFERASE 27 IU/L (10-42); BILIRUBIN,TOTAL 1.6 mg/dL (0.2-1.0); BUN - BLOOD UREA NITROGEN 22 mg/dL (6-20); CALCIUM 10.2 mg/dL (8.5-10.3); CARBON DIOXIDE - CO2 28 mmol/L (21-32); CHLORIDE 103 mmol/L (101-111); CHOL/HDL RATIO 3.3 (<4.4); CHOLESTEROL 190 mg/dL; CREATININE 0.7 mg/dL (0.4-1.0); GFR - MDRD 81 (>89); GLUCOSE 146 mg/dL (70-100); HDL CHOLESTEROL 58 mg/dL; LDL CHOLESTEROL,CALCULATED 73 mg/dL; LDL/HDL RATIO 1.3 (<4.4); POTASSIUM 3.5 mmol/L (3.5-5.0); SODIUM 142 mmol/L (135-145); TOTAL PROTEIN 6.9 g/dL (6.7-8.2); TRIGLYCERIDES 293 mg/dL; VLDL CHOLESTEROL 59 mg/dL
[2021-03-26 19:06] LABS: THYROID STIMULATING HORMONE 1.07 uIU/mL (0.34-5.60)
[2021-03-26 21:21] LABS: ESTIMATED AVERAGE GLUCOSE 128 mg/dL (70-100); HEMOGLOBIN A1c% 6.1 % (4.27-6.07)
== END 2021-03-26 23:59 | disposition home or self-care (01) ==
LOC: LAB.WCP 08:00
PROVIDERS: ATTEND Family Medicine
DX: E87.6 Hypokalemia (principal); I25.10 Atherosclerotic heart disease of native coronary artery without angina pectoris; E03.9 Hypothyroidism, unspecified; R73.01 Impaired fasting glucose
CPT/HCPCS: 36415; 80053; 80061; 83036; 83721; 84443; 85025

== ENCOUNTER 2021-09-18 07:04 | Outpatient (CLI) | payer MEDICARE, OTHER ==
[2021-09-18 11:45] LABS: BASOPHILS # (AUTO) 0.1 10^3/uL (0.0-0.1); BASOPHILS % (AUTO) 0.6 %; EOSINOPHILS # (AUTO) 0.1 10^3/uL (0.0-0.7); EOSINOPHILS % (AUTO) 1.5 %; HCT - HEMATOCRIT 45.7 % (37.0-47.0); HGB - HEMOGLOBIN 14.6 g/dL (12.0-16.0); LYMPHOCYTES # (AUTO) 1.9 10^3/uL (1.5-3.5); LYMPHOCYTES % (AUTO) 19.9 %; MEAN CORPUSCULAR HEMOGLOBIN 29.1 pg (27.0-31.0); MEAN CORPUSCULAR HGB CONC 31.9 g/dL (32.0-36.0); MEAN PLATELET VOLUME 11.4 fL (7.9-10.8); MONOCYTES # (AUTO) 0.9 10^3/uL (0.0-1.0); MONOCYTES % (AUTO) 9.1 %; NEUTROPHILS # (AUTO) 6.5 10^3/uL (1.5-6.6); NEUTROPHILS % (AUTO) 68.6 %; PLT - PLATELET COUNT 368 10^3/uL (130-450); RED BLOOD COUNT 5.02 10^6/uL (4.20-5.40); RED CELL DISTRIBUTION WIDTH 12.6 % (12.0-15.0); WHITE BLOOD COUNT 9.5 x10^3/uL (4.8-10.8)
[2021-09-18 12:02] LABS: BUN - BLOOD UREA NITROGEN 19 mg/dL (6-20); CALCIUM 9.8 mg/dL (8.5-10.3); CARBON DIOXIDE - CO2 27 mmol/L (21-32); CHLORIDE 103 mmol/L (101-111); CHOL/HDL RATIO 3.1 (<4.4); CHOLESTEROL 169 mg/dL; CREATININE 0.8 mg/dL (0.4-1.0); GFR - MDRD 69 (>89); GLUCOSE 125 mg/dL (70-100); HDL CHOLESTEROL 54 mg/dL; LDL CHOLESTEROL,CALCULATED 74 mg/dL; LDL/HDL RATIO 1.4 (<4.4); POTASSIUM 3.9 mmol/L (3.5-5.0); SODIUM 143 mmol/L (135-145); TRIGLYCERIDES 206 mg/dL; VLDL CHOLESTEROL 41 mg/dL
[2021-09-18 12:13] LABS: THYROID STIMULATING HORMONE 1.96 uIU/mL (0.34-5.60)
[2021-09-18 12:20] LABS: ESTIMATED AVERAGE GLUCOSE 128 mg/dL (70-100); HEMOGLOBIN A1c% 6.1 % (4.27-6.07)
== END 2021-09-18 23:59 | disposition home or self-care (01) ==
LOC: LAB.WCP 07:04
PROVIDERS: ATTEND Family Medicine
DX: E87.6 Hypokalemia (principal); I25.10 Atherosclerotic heart disease of native coronary artery without angina pectoris; R73.01 Impaired fasting glucose; E03.9 Hypothyroidism, unspecified
CPT/HCPCS: 36415; 80048; 80061; 83036; 83721; 84443; 85025

== ENCOUNTER 2021-09-24 08:00 | Outpatient (CLI) | payer MEDICARE, OTHER ==
[2021-09-24 18:43] LABS: CK- CREATINE KINASE 69 IU/L (22-269); CRP - C-REACTIVE PROTEIN < 1.0 mg/dL (0-1.0)
== END 2021-09-24 23:59 | disposition home or self-care (01) ==
LOC: LAB.WCP 08:00
PROVIDERS: ATTEND Family Medicine
DX: M79.10 Myalgia, unspecified site (principal); M25.50 Pain in unspecified joint
CPT/HCPCS: 36415; 82550; 85651; 86140

== ENCOUNTER 2021-09-26 09:51 | Outpatient (CLI) | payer MEDICARE, OTHER ==
--- NOTE | 2021-09-26 11:08 | XRAY Report ---
PROCEDURE: Pelvis 1 View INDICATIONS: BILATERAL HIP PX TECHNIQUE: Single view of the pelvis COMPARISON: None. FINDINGS: No acute fracture. Lumbar spondylosis and facet arthropathy. Mild bilateral hip joint degeneration. P resumed bone island projecting in the right acetabular roof. The sacroiliac joints grossly unremarkab le. There is degenerative sclerosis and spurring at the pubis symphysis. IMPRESSION: Mild bilateral hip joint degeneration. If the patient's pain or other symptoms persist, consider furt her evaluation with MRI. Reviewed by: Lucio Gaspar MD on 09/26/2021 11:07 AM PST Approved by: Lucio Gaspar MD on 09/26/2021 11:07 AM PST Station ID: [id number]
--- NOTE | 2021-09-26 14:53 | XRAY Report ---
PROCEDURE: Shoulder 2 View BILAT INDICATIONS: BILATERAL SHOULDER PX TECHNIQUE: Views of the location were acquired. COMPARISON: None. FINDINGS: Bones: Both acromioclavicular joints have moderate degenerative changes with joint space narrowing. T he glenohumeral joints have no significant degenerative changes. No fracture or dislocation. The juan jose ent is status post median sternotomy. The remaining visualized bones have a normal appearance. Soft tissues: No suspicious soft tissue calcifications. IMPRESSION: Moderate degenerative changes of the acromioclavicular joints bilaterally with no other significant abnormality. Reviewed by: Tam Ga on 09/26/2021 2:52 PM PST Approved by: Tam Ga on 09/26/2021 2:52 PM PST Station ID: [id number]
== END 2021-09-26 09:52 | disposition home or self-care (01) ==
LOC: DI.N 09:51
PROVIDERS: ATTEND Family Medicine
DX: M16.0 Bilateral primary osteoarthritis of hip (principal); M19.011 Primary osteoarthritis, right shoulder; M19.012 Primary osteoarthritis, left shoulder

== ENCOUNTER 2021-11-14 08:00 | Outpatient (CLI) | payer MEDICARE, OTHER ==
[2021-11-14 13:35] LABS: BASOPHILS % (AUTO) 0.3 %; EOSINOPHILS # (AUTO) 0.1 10^3/uL (0.0-0.7); EOSINOPHILS % (AUTO) 0.8 %; HCT - HEMATOCRIT 42.4 % (37.0-47.0); HGB - HEMOGLOBIN 13.4 g/dL (12.0-16.0); LYMPHOCYTES # (AUTO) 2.8 10^3/uL (1.5-3.5); LYMPHOCYTES % (AUTO) 23.6 %; MEAN CORPUSCULAR HEMOGLOBIN 28.1 pg (27.0-31.0); MEAN CORPUSCULAR HGB CONC 31.6 g/dL (32.0-36.0); MEAN CORPUSCULAR VOLUME 88.9 fL (81.0-99.0); MEAN PLATELET VOLUME 10.9 fL (7.9-10.8); MONOCYTES # (AUTO) 1.3 10^3/uL (0.0-1.0); MONOCYTES % (AUTO) 10.8 %; NEUTROPHILS # (AUTO) 7.6 10^3/uL (1.5-6.6); PLT - PLATELET COUNT 336 10^3/uL (130-450); RED BLOOD COUNT 4.77 10^6/uL (4.20-5.40); RED CELL DISTRIBUTION WIDTH 14.8 % (12.0-15.0); WHITE BLOOD COUNT 11.9 x10^3/uL (4.8-10.8)
[2021-11-14 13:58] LABS: BUN - BLOOD UREA NITROGEN 25 mg/dL (6-20); CALCIUM 10.6 mg/dL (8.5-10.3); CARBON DIOXIDE - CO2 31 mmol/L (21-32); CHLORIDE 100 mmol/L (101-111); CREATININE 0.8 mg/dL (0.4-1.0); GFR - MDRD 69 (>89); GLUCOSE 90 mg/dL (70-100); POTASSIUM 3.8 mmol/L (3.5-5.0); SODIUM 141 mmol/L (135-145)
[2021-11-14 14:10] LABS: CRP - C-REACTIVE PROTEIN < 1.0 mg/dL (0-1.0)
== END 2021-11-14 23:59 ==
LOC: LAB.WCP 08:00
PROVIDERS: ATTEND Family Medicine
DX: M25.50 Pain in unspecified joint (principal)
CPT/HCPCS: 36415; 80048; 85025; 85651; 86140

== ENCOUNTER 2021-11-29 07:05 | Outpatient (CLI) | payer MEDICARE, OTHER ==
[2021-11-29 12:21] LABS: CALCIUM 9.4 mg/dL (8.5-10.3); CREATININE 0.7 mg/dL (0.4-1.0); POTASSIUM 3.9 mmol/L (3.5-5.0)
== END 2021-11-29 23:59 | disposition home or self-care (01) ==
LOC: LAB.WCP 07:05
PROVIDERS: ATTEND Family Medicine
DX: R60.9 Edema, unspecified (principal); E83.52 Hypercalcemia
CPT/HCPCS: 36415; 80048; 81599; 82306; 82330; 83970

== ENCOUNTER 2022-03-20 09:11 | Outpatient (CLI) | payer MEDICARE, OTHER ==
[2022-03-20 11:55] LABS: BASOPHILS % (AUTO) 0.4 %; EOSINOPHILS % (AUTO) 0.4 %; HCT - HEMATOCRIT 44.4 % (37.0-47.0); HGB - HEMOGLOBIN 14.3 g/dL (12.0-16.0); LYMPHOCYTES # (AUTO) 1.1 10^3/uL (1.5-3.5); LYMPHOCYTES % (AUTO) 10.2 %; MEAN CORPUSCULAR HEMOGLOBIN 30.1 pg (27.0-31.0); MEAN CORPUSCULAR HGB CONC 32.2 g/dL (32.0-36.0); MEAN CORPUSCULAR VOLUME 93.5 fL (81.0-99.0); MEAN PLATELET VOLUME 11.6 fL (7.9-10.8); MONOCYTES # (AUTO) 0.6 10^3/uL (0.0-1.0); MONOCYTES % (AUTO) 5.7 %; NEUTROPHILS # (AUTO) 8.6 10^3/uL (1.5-6.6); NEUTROPHILS % (AUTO) 82.9 %; PLT - PLATELET COUNT 245 10^3/uL (130-450); RED BLOOD COUNT 4.75 10^6/uL (4.20-5.40); WHITE BLOOD COUNT 10.4 x10^3/uL (4.8-10.8)
[2022-03-20 12:15] LABS: ALBUMIN 3.9 g/dL (3.2-5.5); ALBUMIN/GLOBULIN RATIO 1.5 (1.0-2.2); ALKALINE PHOSPHATASE 70 IU/L (42-121); ALT ALANINE AMINOTRANSFERASE 34 IU/L (10-60); AST ASPARTATE AMINOTRANSFERASE 27 IU/L (10-42); BILIRUBIN,TOTAL 2.1 mg/dL (0.2-1.0); BUN - BLOOD UREA NITROGEN 17 mg/dL (6-20); CALCIUM 9.5 mg/dL (8.5-10.3); CARBON DIOXIDE - CO2 29 mmol/L (21-32); CHLORIDE 102 mmol/L (101-111); CHOL/HDL RATIO 2.6 (<4.4); CHOLESTEROL 211 mg/dL; CREATININE 0.8 mg/dL (0.4-1.0); CRP - C-REACTIVE PROTEIN 1.3 mg/dL (0-1.0); GFR - MDRD 69 (>89); GLUCOSE 179 mg/dL (70-100); HDL CHOLESTEROL 81 mg/dL; LDL CHOLESTEROL,CALCULATED 71 mg/dL; LDL/HDL RATIO 0.9 (<4.4); POTASSIUM 4.1 mmol/L (3.5-5.0); SODIUM 140 mmol/L (135-145); TOTAL PROTEIN 6.5 g/dL (6.7-8.2); TRIGLYCERIDES 296 mg/dL; VLDL CHOLESTEROL 59 mg/dL
== END 2022-03-20 09:12 | disposition home or self-care (01) ==
LOC: LAB.N 09:11
PROVIDERS: ATTEND Family Medicine
DX: E78.6 Lipoprotein deficiency (principal); I25.10 Atherosclerotic heart disease of native coronary artery without angina pectoris; M79.10 Myalgia, unspecified site; M25.50 Pain in unspecified joint
CPT/HCPCS: 36415; 80053; 80061; 83721; 85025; 85651; 86140

== ENCOUNTER 2022-06-05 07:39 | Outpatient (CLI) | payer MEDICARE, OTHER ==
[2022-06-05 12:03] LABS: BASOPHILS # (AUTO) 0.1 10^3/uL (0.0-0.1); BASOPHILS % (AUTO) 0.8 %; EOSINOPHILS # (AUTO) 0.2 10^3/uL (0.0-0.7); EOSINOPHILS % (AUTO) 2.3 %; HCT - HEMATOCRIT 42.6 % (37.0-47.0); HGB - HEMOGLOBIN 13.6 g/dL (12.0-16.0); LYMPHOCYTES # (AUTO) 2.6 10^3/uL (1.5-3.5); LYMPHOCYTES % (AUTO) 28.6 %; MEAN CORPUSCULAR HEMOGLOBIN 29.1 pg (27.0-31.0); MEAN CORPUSCULAR HGB CONC 31.9 g/dL (32.0-36.0); MEAN CORPUSCULAR VOLUME 91.2 fL (81.0-99.0); MEAN PLATELET VOLUME 11.3 fL (7.9-10.8); MONOCYTES % (AUTO) 11.2 %; NEUTROPHILS # (AUTO) 5.2 10^3/uL (1.5-6.6); NEUTROPHILS % (AUTO) 56.9 %; PLT - PLATELET COUNT 306 10^3/uL (130-450); RED BLOOD COUNT 4.67 10^6/uL (4.20-5.40); RED CELL DISTRIBUTION WIDTH 12.4 % (12.0-15.0); WHITE BLOOD COUNT 9.1 x10^3/uL (4.8-10.8)
[2022-06-05 12:27] LABS: BUN - BLOOD UREA NITROGEN 22 mg/dL (6-20); CALCIUM 9.6 mg/dL (8.5-10.3); CARBON DIOXIDE - CO2 30 mmol/L (21-32); CHLORIDE 104 mmol/L (101-111); CREATININE 0.8 mg/dL (0.4-1.0); CRP - C-REACTIVE PROTEIN < 1.0 mg/dL (0-1.0); GFR - MDRD 69 (>89); GLUCOSE 120 mg/dL (70-100); POTASSIUM 3.7 mmol/L (3.5-5.0); SODIUM 142 mmol/L (135-145)
== END 2022-06-05 07:40 | disposition home or self-care (01) ==
LOC: LAB.N 07:39
DX: M35.3 Polymyalgia rheumatica (principal)
CPT/HCPCS: 36415; 80048; 85025; 85651; 86140

== ENCOUNTER 2022-09-17 07:27 | Outpatient (CLI) | payer MEDICARE, OTHER ==
[2022-09-17 12:08] LABS: BASOPHILS # (AUTO) 0.1 10^3/uL (0.0-0.1); BASOPHILS % (AUTO) 0.9 %; EOSINOPHILS # (AUTO) 0.1 10^3/uL (0.0-0.7); EOSINOPHILS % (AUTO) 1.8 %; HCT - HEMATOCRIT 44.4 % (37.0-47.0); HGB - HEMOGLOBIN 14.4 g/dL (12.0-16.0); LYMPHOCYTES # (AUTO) 1.6 10^3/uL (1.5-3.5); LYMPHOCYTES % (AUTO) 19.9 %; MEAN CORPUSCULAR HEMOGLOBIN 29.5 pg (27.0-31.0); MEAN CORPUSCULAR HGB CONC 32.4 g/dL (32.0-36.0); MEAN PLATELET VOLUME 11.5 fL (7.9-10.8); MONOCYTES # (AUTO) 0.9 10^3/uL (0.0-1.0); MONOCYTES % (AUTO) 11.6 %; NEUTROPHILS # (AUTO) 5.1 10^3/uL (1.5-6.6); NEUTROPHILS % (AUTO) 65.5 %; PLT - PLATELET COUNT 297 10^3/uL (130-450); RED BLOOD COUNT 4.88 10^6/uL (4.20-5.40); RED CELL DISTRIBUTION WIDTH 14.3 % (12.0-15.0); WHITE BLOOD COUNT 7.8 x10^3/uL (4.8-10.8)
[2022-09-17 13:04] LABS: BUN - BLOOD UREA NITROGEN 15 mg/dL (6-20); CALCIUM 9.3 mg/dL (8.5-10.3); CARBON DIOXIDE - CO2 26 mmol/L (21-32); CHLORIDE 108 mmol/L (101-111); CREATININE 0.7 mg/dL (0.4-1.0); GFR - MDRD 80 (>89); GLUCOSE 115 mg/dL (70-100); POTASSIUM 3.8 mmol/L (3.5-5.0); SODIUM 142 mmol/L (135-145)
[2022-09-17 13:24] LABS: CRP - C-REACTIVE PROTEIN < 1.0 mg/dL (0-1.0)
[2022-09-17 13:34] LABS: CHOL/HDL RATIO 2.7 (<4.4); CHOLESTEROL 159 mg/dL; HDL CHOLESTEROL 60 mg/dL; LDL CHOLESTEROL,CALCULATED 67 mg/dL; LDL/HDL RATIO 1.1 (<4.4); RHEUMATOID FACTOR NEGATIVE (Negative); TRIGLYCERIDES 159 mg/dL; VLDL CHOLESTEROL 32 mg/dL
[2022-09-17 13:39] LABS: THYROID STIMULATING HORMONE 1.41 uIU/mL (0.34-5.60)
[2022-09-17 13:41] LABS: FREE T4 (FREE THYROXINE) 1.19 ng/dL (0.58-1.64)
[2022-09-17 13:54] LABS: ESTIMATED AVERAGE GLUCOSE 137 mg/dL (70-100); HEMOGLOBIN A1c% 6.4 % (4.27-6.07)
[2022-09-18 03:08] LABS: HCV AB <0.1 s/co ratio (0.0-0.9)
[2022-09-19 09:08] LABS: HEPATITIS BE ANTIBODY Negative (Negative)
[2022-09-20 19:07] LABS: CYCLIC CITRULLINATED PEP IGG/A 2 units (0-19)
== END 2022-09-17 07:28 | disposition home or self-care (01) ==
LOC: LAB.N 07:27
DX: M35.3 Polymyalgia rheumatica (principal); M13.0 Polyarthritis, unspecified; E78.5 Hyperlipidemia, unspecified; R73.01 Impaired fasting glucose; E03.9 Hypothyroidism, unspecified
CPT/HCPCS: 36415; 80048; 80061; 81599; 83036; 83721; 84439; 84443; 85025; 85651; 86140; 86200; 86430; 86480; 86707; 86803

== ENCOUNTER 2023-02-06 11:10 | Outpatient (CLI) | payer MEDICARE, OTHER ==
--- NOTE | 2023-02-06 12:24 | XRAY Report ---
PROCEDURE: Knee 4 View LT INDICATIONS: HISTORY OF TOTAL KNEE ARTHROPLASTY TECHNIQUE: 4 views of the left knee(s) were acquired. COMPARISON: 08/02/2013 FINDINGS: Bones: Knee arthroplasty Revision construct appears to be in appropriate position. Patellar resurfac ing. Soft tissues: Vascular calcifications. IMPRESSION: Knee arthroplasty revision construct appears in appropriate position. Reviewed by: Aleksandr Sweeney MD on 02/06/2023 12:22 PM PDT Approved by: Aleksandr Sweeney MD on 02/06/2023 12:22 PM PDT Station ID: [id number]
== END 2023-02-06 11:11 | disposition home or self-care (01) ==
LOC: DI 11:10
PROVIDERS: ATTEND Physician Assistant
DX: M25.562 Pain in left knee (principal); Z96.659 Presence of unspecified artificial knee joint

== ENCOUNTER 2023-02-19 09:49 | Outpatient (CLI) | payer MEDICARE, OTHER ==
--- NOTE | 2023-02-19 10:41 | DEXA Report ---
PROCEDURE: Dexa Spine and/or Hip INDICATIONS: OSTEOPOROSIS TECHNIQUE: Dual energy x-ray absorptiometry (DXA) was performed on a [employer] System. Regions measur ed are the AP Spine, femoral neck, and if needed forearm. COMPARISON: 08/08/2017 FINDINGS: Lumbar Spine: Bone Mineral Density 1.25 g/cm/cm,T score 0.6, 0.6 previously Left Femoral Neck: Bone Mineral Density 0.75 g/cm/cm, T score -2.1, -1.6 previously Left Hip: Bone Mineral Density 0.8 g/cm/cm,T score -1.7, -1.7 previously (T score greater or equal to -1.0: NORMAL) (T score from -1.1 to -2.4: OSTEOPENIA) (T score less than or equal to -2.5 to: OSTEOPOROSIS) Impression: Similar normal bone mineral density in the lumbar spine. Persistent osteopenia of the left femoral ne ck and hip, with slightly decreased bone mineral density at the left femoral neck in particular. This elevates fracture risk. Patients with diagnosis of osteoporosis or osteopenia should have regular bone mineral density assess ment. For those eligible for Medicare, routine testing is allowed once every 2 years. Testing frequ ency can be increased for patients who have rapidly progressing disease or for those who are receivin g medical therapy to restore bone mass. Reviewed by: Aleksandr Sweeney MD on 02/19/2023 10:40 AM PDT Approved by: Aleksandr Sweeney MD on 02/19/2023 10:40 AM PDT Station ID: [id number]
== END 2023-02-19 09:50 | disposition home or self-care (01) ==
LOC: DI 09:49
PROVIDERS: ATTEND Internal Medicine Rheumatology
DX: M85.89 Other specified disorders of bone density and structure, multiple sites (principal)

== ENCOUNTER 2023-05-08 10:14 | Outpatient (CLI) | payer MEDICARE, OTHER ==
--- NOTE | 2023-05-08 17:53 | XRAY Report ---
PROCEDURE: Hips 2V BILAT INDICATIONS: GREATER TROCHANTERIC BURSITIS, LEFT TECHNIQUE: 2 views of the hip were acquired. COMPARISON: None. FINDINGS: Bones: Degenerative changes of the lumbar spine, the sacroiliac joints, both hips, and the symphysis pubis. No fracture or dislocation. No radiographic abnormality of the left greater trochanter. Soft tissues: No suspicious soft tissue calcifications or masses. Vasculature has atherosclerotic calcifications. IMPRESSION: 1. No acute abnormality. 2. Degenerative changes. Reviewed by: Tam Ga on 05/08/2023 4:52 PM [facility] Approved by: Tam Ga on 05/08/2023 4:52 PM [facility] Station ID: [id number]
== END 2023-05-08 10:15 | disposition home or self-care (01) ==
LOC: DI 10:14
PROVIDERS: ATTEND Physician Assistant
DX: M70.62 Trochanteric bursitis, left hip (principal); M16.0 Bilateral primary osteoarthritis of hip

== ENCOUNTER 2023-07-17 14:09 | Outpatient (CLI) | payer MEDICARE, OTHER ==
--- NOTE | 2023-07-18 14:32 | MRI Report ---
PROCEDURE: KNEE WO - LT INDICATIONS: LEFT KNEE PAIN, LEFT TOTAL KNEE REPLACEMENT TECHNIQUE: Noncontrast sagittal PD fast spin echo and T2 fast spin echo with fat saturation, sagittal 3-D gradie nt sequence with fat saturation; coronal T1 spin echo and PD fast spin echo with fat saturation, and axial PD fast spin echo with fat saturation through the knee. COMPARISON: X-ray left knee, 06/19/2023. FINDINGS: Image quality: Excellent. Bones: There are postsurgical changes with total knee arthroplasty. Metallic artifacting from knee pr osthesis obscure adjacent structures. Soft tissue: Mild thickening of quadriceps tendon and patellar tendon thickening suggesting tendinit is. No tendon rupture. There is small knee joint fluid. Trace Andersen's cyst. Normal appearing synovia l plicae are incidentally noted. IMPRESSION: 1. Severely limited examination due to artifacts from the prosthesis. 2. Suspect patellar and quadriceps tendinitis. 3. Small knee joint effusion. Reviewed by: Marita Macias MD on 07/18/2023 2:30 PM PDT Approved by: Marita Macias MD on 07/18/2023 2:30 PM PDT Station ID: [id number]
== END 2023-07-17 14:10 | disposition home or self-care (01) ==
LOC: DI 14:09
PROVIDERS: ATTEND Physician Assistant
DX: M25.462 Effusion, left knee (principal); Z96.652 Presence of left artificial knee joint

== ENCOUNTER 2023-09-18 11:29 | Outpatient (CLI) | payer MEDICARE, OTHER ==
[2023-09-18 11:53] LABS: BASOPHILS # (AUTO) 0.1 10^3/uL (0.0-0.1); BASOPHILS % (AUTO) 0.6 %; EOSINOPHILS # (AUTO) 0.2 10^3/uL (0.0-0.7); EOSINOPHILS % (AUTO) 2.4 %; HCT - HEMATOCRIT 43.9 % (37.0-47.0); HGB - HEMOGLOBIN 14.5 g/dL (12.0-16.0); LYMPHOCYTES % (AUTO) 22.1 %; MEAN CORPUSCULAR HEMOGLOBIN 30.6 pg (27.0-31.0); MEAN CORPUSCULAR VOLUME 92.6 fL (81.0-99.0); MEAN PLATELET VOLUME 10.7 fL (7.9-10.8); MONOCYTES % (AUTO) 11.4 %; NEUTROPHILS # (AUTO) 5.7 10^3/uL (1.5-6.6); NEUTROPHILS % (AUTO) 63.2 %; PLT - PLATELET COUNT 304 10^3/uL (130-450); RED BLOOD COUNT 4.74 10^6/uL (4.20-5.40); RED CELL DISTRIBUTION WIDTH 13.5 % (12.0-15.0); WHITE BLOOD COUNT 8.9 x10^3/uL (4.8-10.8)
[2023-09-18 12:13] LABS: ALBUMIN 4.4 g/dL (3.2-5.5); ALBUMIN/GLOBULIN RATIO 1.8 (1.0-2.2); ALKALINE PHOSPHATASE 91 IU/L (42-121); ALT ALANINE AMINOTRANSFERASE 27 IU/L (10-60); AST ASPARTATE AMINOTRANSFERASE 24 IU/L (10-42); BILIRUBIN,TOTAL 1.8 mg/dL (0.2-1.0); BUN - BLOOD UREA NITROGEN 14 mg/dL (6-20); CALCIUM 10.3 mg/dL (8.5-10.3); CARBON DIOXIDE - CO2 32 mmol/L (21-32); CHLORIDE 104 mmol/L (101-111); CREATININE 0.6 mg/dL (0.6-1.3); CRP - C-REACTIVE PROTEIN < 0.5 mg/dL (<0.5); GFR - MDRD 96 (>89); GLUCOSE 100 mg/dL (74-104); POTASSIUM 3.7 mmol/L (3.5-4.5); SODIUM 141 mmol/L (135-145); TOTAL PROTEIN 6.8 g/dL (6.4-8.9); URIC ACID 4.5 mg/dL (2.3-6.6)
--- NOTE | 2023-09-18 12:50 | XRAY Report ---
PROCEDURE: Foot 2 View LT INDICATIONS: LEFT FOOT PAIN TECHNIQUE: 2 views of the foot were acquired. COMPARISON: None. FINDINGS: Bones: No fractures or dislocations. No suspicious bony lesions. Interphalangeal joint space narr owing with osteophytosis . Plantar calcaneal enthesophyte. Soft tissues: No suspicious soft tissue calcifications or masses. Vascular calcifications. IMPRESSION: No acute bony abnormality. No evidence of rheumatoid arthritis. Mild interphalangeal osteoarthritis. Reviewed by: Tacho Hudson on 09/18/2023 12:48 PM [facility] Approved by: Tacho Hudson on 09/18/2023 12:48 PM [facility] Station ID: [id number]
[2023-09-18 14:26] LABS: RHEUMATOID FACTOR NEGATIVE (Negative)
== END 2023-09-18 11:30 | disposition home or self-care (01) ==
LOC: DI 11:29
PROVIDERS: ATTEND Internal Medicine Rheumatology
DX: M19.072 Primary osteoarthritis, left ankle and foot (principal)
CPT/HCPCS: 36415; 80053; 84550; 85025; 85651; 86140; 86200; 86430

== ENCOUNTER 2024-06-07 10:34 | Emergency (ER) | payer MEDICARE, OTHER ==
--- NOTE | 2024-06-07 11:29 | ED Physician Documentation ---
History of Present Illness - Stated complaint Stated Complaint: HIGH BP,DIZZINESS - Chief complaint Chief Complaint: General - History obtained from History obtained from: Patient - Additonal information Additional information: 83-year-old female With history of hypertension, atrial fibrillation, CAD, migraines Presents with concerns about her blood pressure as well as dizziness, and right ear discomfort. She states she had no respiratory illness for the last 3 weeks, with a very severe cough and during one of her coughing fit she felt her right eardrum pop. She was seen several times at various different clinics for the respiratory illness which she was told was viral, and the ear pain and she was reassured that this would improve on its own. Since then however she has had a fullness sensation and poor hearing in the right ear and has felt somewhat dizzy. And today she noted that her blood pressure was up as high as 180s over 100 at home. She did not have any chest pain, no shortness of breath and her cough from her viral illness has been improving. She has not had any severe headache, no vision changes, no confusion or alteration of mental status, no numbness or tingling, no ataxia. She believes she had a fever a few days ago, none currently. She denies any abdominal issues no nausea vomiting diarrhea, no urinary symptoms. She is on amlodipine that has been cut back re cently to only 2.5 mg daily. Review of Systems Constitutional: reports: Fever Eyes: reports: Reviewed and negative Ears: reports: Loss of hearing, Ear pain Nose: reports: Reviewed and negative Throat: reports: Reviewed and negative Cardiac: reports: Reviewed and negative Respiratory: reports: Dyspnea. 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 : Frequency HEENT: None Psych: None Musculoskeletal: Osteoarthritis Derm: Rosacea - Past Surgical History Past Surgical History: Yes General: Appendectomy, Bowel surgery, Colonoscopy Ortho: Knee replacement, Arthroscopic surgery, Other /UPHOLSTERY INSTRUCTOR: Hysterectomy, Oophrectomy Cardiovascular: CABG HEENT: Tonsil/Adenoidectomy - Present Medications Home Medications: Ambulatory Orders Medication Instructions Recorded Confirmed Atorvastatin Calcium [Lipitor] 80 mg PO HS 07/29/13 05/20/23 Clobetasol Propionate/Emoll 1 applic TOP DAILY PRN 07/29/13 05/20/23 [Clobetasol Emollient 0.05% Crm] Levothyroxine [Synthroid] 50 mcg PO QDAC 07/29/13 05/20/23 Multivitamin [Multivitamins] 1 each PO DAILY 07/29/13 05/20/23 Metoprolol Succinate 50 mg ORAL BID 04/02/18 05/20/23 Amlodipine Besylate 5 mg ORAL BID 04/08/19 05/20/23 Aspirin Chewable [[place] 1 tab ORAL DAILY 04/08/19 05/20/23 Aspirin] Cholecalciferol (Vitamin D3) 1 tab ORAL DAILY 04/08/19 05/20/23 [Vitamin D3] Furosemide [Lasix] 20 mg ORAL DAILY 04/08/19 05/20/23 Isosorbide Mononitrate ER [Imdur] 30 mg ORAL DAILY 04/08/19 05/20/23 Nitroglycerin [Nitrostat] PRN 04/08/19 Potassium Chloride 10 meq PO DAILY #20 tablet.er 09/18/20 05/20/23 Ezetimibe [Zetia] 10 mg PO QD 05/20/23 05/20/23 Methotrexate [Methotrexate Sodium] 10 mg PO Q7D 05/20/23 05/20/23 Cetirizine [ZyrTEC] 10 mg PO DAILY #30 tablet 06/07/24 amLODIPine [Norvasc] 5 mg PO DAILY #30 tablet 06/07/24 - Allergies Allergies/Adverse Reactions: Allergies Allergy/AdvReac Type Severity Reaction Status Date / Time metoclopramide HCl * Allergy VIOLENTLY Verified 06/07/24 10:49 [From Reglan] ILL tramadol Allergy Unknown Verified 06/07/24 10:49 acetaminophen [From Vicodin] AdvReac Nausea Verified 06/07/24 10:49 hydrocodone bitartrate * AdvReac Nausea Verified 06/07/24 10:49 [From Vicodin] morphine AdvReac NAUSEA/EMES Verified 06/07/24 10:49 IS - Social History Does the pt smoke?: No Smoking Status: Never smoker Does the pt drink ETOH?: Yes Does the pt have substance abuse?: No - Immunizations Immunizations are current?: Yes - POLST Patient has POLST: No PD ED PE NORMAL - Vitals Vital signs reviewed: Yes - General General: Alert and oriented X 3, No acute distress, Well developed/nourished - HEENT HEENT: Atraumatic, PERRL, EOMI, Moist mucous membranes, Pharynx benign, Other (Left TM normal, canal normal, right canal normal, right TM has a scab over it and there appears to be some small amount of fluid behind the TM but it is intact) - Cardiac Cardiac: No murmur, No gallop, No rub, Strong equal pulses, Other (Irregular) - Respiratory Respiratory: No respiratory distress, Clear bilaterally - Abdomen Abdomen: Normal bowel sounds, Soft, Non tender, Non distended - Back Back: No CVA TTP, No spinal TTP - Derm Derm: Normal color, Warm and dry, No rash - Extremities Extremities: No deformity, No tenderness to palpate, Normal ROM s pain, No edema, No calf tenderness / cord - Neuro Neuro: Alert and oriented X 3, 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 Relevant findings are: Rate: Rate (enter#) (68) Rhythm: NSR [place]: Normal Intervals: Normal GA QRS: Normal Ischemia: Normal ST segments Computer interpretation: Agree with computer - Labs Labs: Laboratory Tests 06/07/24 06/07/24 11:38 11:38 WBC 5.8 RBC 5.00 Hgb 14.3 Hct 44.2 MCV 88.4 MCH 28.6 MCHC 32.4 RDW 13.1 Plt Count 223 MPV 11.4 H Neut # (Auto) 3.9 Lymph # (Auto) 1.1 L [place] # (Auto) 0.7 Eos # (Auto) 0.1 Baso # (Auto) 0.0 Absolute Nucleated RBC 0.00 Nucleated RBC % 0.0 Sodium 141 Potassium 3.6 Chloride 106 Carbon Dioxide 27 Anion Gap 8.0 BUN 9 Creatinine 0.5 L Estimated GFR (MDRD) 118 Glucose 105 H Calcium 9.3 Total Bilirubin 1.4 H AST 23 ALT 22 Alkaline Phosphatase 102 Troponin I High Sens 6.6 Total Protein 6.5 Albumin 3.9 Globulin 2.6 Albumin/Globulin Ratio 1.5 Lipase 37 - Rads (name of study) No standard instances Relevant Findings:: Final report received PD Medical Decision Making - ED course Complexity details: reviewed old records, reviewed results, re-evaluated patient, considered differential, d/w patient ED course: This is a 83-year-old female who presents to this dizziness, right ear symptom and concerns about high blood pressure as noted in HPI. Elevated blood pressure patient's blood pressure was quite elevated At home, on arrival here remains somewhat elevated but slowly improved into the 160s over 70s region. She is well-appearing here on physical exam, afebrile nontoxic in no acute distress. Her neuroexam is unremarkable. She does have decreased hearing in the right ear And there is a small amount of right ear effusion and a scab on the ear canal which may be contributing. I discussed with patient she likely has a eustachian tube dysfunction and some fluid behind her ear from her recent URI. This will need time to resolve but in the meantime she could try some cetirizine. I told her to avoid decongestants given that she does have hypertension. In regards to her hypertension, I did obtain lab work including CBC CMP and EKG which were reassuring, no signs of acute ischemia, stable lab work. Her blood pressure remained above goal therefore I recommended we increase her amlodipine from 2.5 to 5 mg daily and patient to follow-up with her primary doctor within the next week to have her blood pressure rechecked. Obtain x-ray given her recent prolonged viral illness this is actually improving, patient is in no respiratory distress. X-ray was negative for signs of pneumonia. Patient I do believe is stable for discharge home at this time she will schedule follow-up with her PCP within the next week or so to go over her blood pressure and discuss any alterations in blood pressure medicine. In the meantime the patient was started on cetirizine for a right eustachian tube dysfunction. Return precautions reviewed if new or worsening symptoms. Departure - Departure Disposition: 01 Home, Self Care Clinical Impression: Dizziness Hypertension Qualifiers: Hypertension type: primary hypertension Qualified Code(s): I10 - Essential (primary) hypertension Eustachian tube dysfunction Qualifiers: Laterality: right Qualified Code(s): H69.91 - Unspecified Eustachian tube disorder, right ear Condition: Good Instructions: Dizziness Vertigo Inner Ear, Hypertension Dc Prescriptions: amLODIPine [Norvasc] 5 mg PO DAILY #30 tablet Cetirizine [ZyrTEC] 10 mg PO DAILY #30 tablet Comments: Luanne, Your lab workup and heart workup today were reassuring. I think the cause of the your dizziness is likely due to your elevated blood pressure as well as right ear scarring on your eardrum. It also sounds as though you have some eustachian tube dysfunction probably from your recent cold. I have prescribed cetirizine which can give you some relief. Mostly this needs to go away with time. I also recommend we increase your amlodipine from 2.5 mg to 5 mg. Please take this when you get home today. Follow up with your primary doctor within the next week to recheck your blood pressure. Forms: PCP List Discharge Date/Time: 06/07/24 13:39
[2024-06-07 11:46] LABS: BASOPHILS % (AUTO) 0.5 %; EOSINOPHILS # (AUTO) 0.1 10^3/uL (0.0-0.7); EOSINOPHILS % (AUTO) 2.3 %; HCT - HEMATOCRIT 44.2 % (37.0-47.0); HGB - HEMOGLOBIN 14.3 g/dL (12.0-16.0); LYMPHOCYTES # (AUTO) 1.1 10^3/uL (1.5-3.5); LYMPHOCYTES % (AUTO) 18.4 %; MEAN CORPUSCULAR HEMOGLOBIN 28.6 pg (27.0-31.0); MEAN CORPUSCULAR HGB CONC 32.4 g/dL (32.0-36.0); MEAN CORPUSCULAR VOLUME 88.4 fL (81.0-99.0); MEAN PLATELET VOLUME 11.4 fL (7.9-10.8); MONOCYTES # (AUTO) 0.7 10^3/uL (0.0-1.0); MONOCYTES % (AUTO) 11.3 %; NEUTROPHILS # (AUTO) 3.9 10^3/uL (1.5-6.6); NEUTROPHILS % (AUTO) 67.3 %; PLT - PLATELET COUNT 223 10^3/uL (130-450); RED CELL DISTRIBUTION WIDTH 13.1 % (12.0-15.0); WHITE BLOOD COUNT 5.8 x10^3/uL (4.8-10.8)
--- NOTE | 2024-06-07 11:47 | XRAY Report ---
PROCEDURE: Chest 1V INDICATIONS: chest pain TECHNIQUE: One view of the chest was acquired. COMPARISON: None. FINDINGS: Surgical changes and devices: Median sternotomy wires are seen.. Lungs and pleura: No pleural effusions or pneumothorax. Lungs are clear. Mediastinum: Mediastinal contours appear normal. Heart size is normal. Bones and chest wall: No suspicious bony lesions. Overlying soft tissues appear unremarkable. IMPRESSION: No acute cardiopulmonary process. Reviewed by: Salomón Lee MD on 06/07/2024 11:46 AM PDT Approved by: Salomón Lee MD on 06/07/2024 11:46 AM PDT Station ID: [id number]
[2024-06-07 12:04] LABS: ALBUMIN 3.9 g/dL (3.2-5.5); ALBUMIN/GLOBULIN RATIO 1.5 (1.0-2.2); BILIRUBIN,TOTAL 1.4 mg/dL (0.2-1.0); CALCIUM 9.3 mg/dL (8.5-10.3); CREATININE 0.5 mg/dL (0.6-1.3); POTASSIUM 3.6 mmol/L (3.5-4.5); TOTAL PROTEIN 6.5 g/dL (6.4-8.9)
[2024-06-07 12:06] LABS: TROPONIN I HIGH SENSITIVITY 6.6 ng/L (2.3-14.8)
[2024-06-07 12:35] VITALS: O2SAT 96
[2024-06-07 13:33] VITALS: BP 158/60
== END 2024-06-07 13:39 | disposition home or self-care (01) ==
LOC: ED 10:34
DX: R42 Dizziness and giddiness (principal); I10 Essential (primary) hypertension; H69.91 Unspecified Eustachian tube disorder, right ear; I25.10 Atherosclerotic heart disease of native coronary artery without angina pectoris; I48.91 Unspecified atrial fibrillation; E03.9 Hypothyroidism, unspecified
CPT/HCPCS: 36415; 80053; 83690; 84484; 85025; 93005; 99284